=== PATIENT | female | born 1990 | race American Indian/Alaskan Native ===

== ENCOUNTER 2016-08-25 20:53 | Inpatient (IN) | payer MEDICAID ==
[2016-08-25 23:08] LABS: Urine Drugs of Abuse Note Disclamer
[2016-08-25 23:19] LABS: Bacteria,Urine 1+ /HPF (Negative); Bilirubin,Urine NEG (Negative); Blood,Urine NEG (Negative); Ketones,Urine 20 mg/dL (Negative); Leukocyte Esterase,Urine TR (Negative); Mucus,Urine 1+ /HPF; Nitrite,Urine NEG (Negative); Urobilinogen,Urine < 2.0 mg/dL (<2.0)
[2016-08-25 23:39] LABS: Basophils % (Auto) 0.3 % (0.0-1.8); Hematocrit 39.8 % (30.3-42.9); Hemoglobin 13.4 gm/dl (10.1-14.3); Mean Corpuscular HGB Conc 34 % (30-34); Mean Corpuscular Hemoglobin 27 pg (28-32); Mean Corpuscular Volume 81 fl (79-97); Red Blood Count 4.88 M/mm3 (3.65-5.03); Red Cell Distribution Width 14.4 % (13.2-15.2); White Blood Count 8.5 K/mm3 (4.5-11.0)
[2016-08-25 23:40] LABS: Platelet Count 221 K/mm3 (140-440)
[2016-08-25 23:41] LABS: Blood Urea Nitrogen 5 mg/dL (7-17); Calcium 9.6 mg/dL (8.4-10.2); Carbon Dioxide 18 mmol/L (22-30); Chloride 98.4 mmol/L (98-107); Glucose 108 mg/dL (65-100); Sodium 137 mmol/L (137-145)
[2016-08-25 23:43] LABS: Anion Gap 24 mmol/L
[2016-08-25] MEDS ORDERED: ATIVAN IV ONE (23:54)
--- NOTE | 2016-08-26 00:35 | Emergency Department Report ---
ED Seizure HPI - General Chief Complaint: Seizure Stated Complaint: MEDICAL CLEARANCE Time Seen by Provider: 08/25/16 22:09 Source: patient Mode of arrival: Ambulatory Limitations: No Limitations - History of Present Illness Initial Comments: This is a 26-year-old female who is a marginal historian due to being postictal. She indicates that she has long-standing seizure disorder and hasn' t been on different medications for a long time to control her seizures. Most recently she has been on Vimpat and Keppra. She reports she was compliant with these medications her doctor did take her off Vimpat approximately one month ago. She will apparently was on Dilantin as well and her doctor stopped the Dilantin. Patient had a seizure this morning and ultimately ended up at [facility] due to this sheet. She was given a loading dose of Keppra by IV. And was ultimately discharged to home with referral to neurology. Patient isn't able to inform me who her neurologist is. I have serious question and doubt whether she even has a neurologist currently as she seems to have a fibular confusion with what is going on with her medications. She indicates that her boyfriend brought her here today because she was having what sounds like dystonic reactions where she was having screwing up of her face and making funny gestures with her face to her family. On arrival to our ED. The patient had another seizure in our waiting room which last approximately 10 seconds to 15 seconds and was whole body. There was no loss of bowel or bladder continence with this. Patient was somewhat somnolent after for approximately 5-10 minutes and then seemed quite confused for approximately the next hour. MD Complaint: seizure -: Sudden Description of Episode: loss of consciousness, tonic-clonic movement -: second(s) (15) Witnessed:: Yes Trauma: No Seizure History: known seizure disorder Place: home Possible Precipitating Event: none Associated Symptoms: denies other symptoms - Related Data Home Medications Medication Instructions Recorded Confirmed Last Taken Lacosamide [Vimpat] 1 each PO DAILY 06/21/16 06/21/16 Unknown Previous Rx's Medication Instructions Recorded Last Taken Type Lacosamide [Vimpat] 100 mg PO Q12HR #60 tablet 06/21/16 Unknown Rx Nitrofurantoin Kershaw/M-Cryst 100 mg PO Q12HR #14 capsule 06/21/16 Unknown Rx [Macrobid CAP] levETIRAcetam [Keppra TAB] 500 mg PO BID #60 tablet 06/21/16 Unknown Rx Allergies Allergy/AdvReac Type Severity Reaction Status Date / Time Penicillins Allergy Unknown Verified 06/20/16 20:48 phenobarbital Allergy Unknown Verified 08/25/16 21:24 ED Review of Systems ROS: Stated complaint: MEDICAL CLEARANCE Other details as noted in HPI Constitutional: denies: chills, fever Eyes: denies: eye pain, eye discharge, vision change ENT: denies: ear pain, throat pain Respiratory: denies: cough, shortness of breath, wheezing Cardiovascular: denies: chest pain, palpitations Endocrine: no symptoms reported Gastrointestinal: denies: abdominal pain, nausea, diarrhea Genitourinary: denies: urgency, dysuria, discharge Musculoskeletal: denies: back pain, joint swelling, arthralgia Skin: denies: rash, lesions Neurological: denies: headache, weakness, paresthesias Psychiatric: denies: anxiety, depression Hematological/Lymphatic: denies: easy bleeding, easy bruising ED Past Medical Hx - Past Medical History Hx Seizures: Yes (pt takes Keppra) - Surgical History Additional Surgical History: .tubal ligation - Social History Smoking Status: Never Smoker Substance Use Type: None - Medications Home Medications: Home Medications Medication Instructions Recorded Confirmed Last Taken Type Lacosamide [Vimpat] 1 each PO DAILY 06/21/16 06/21/16 Unknown History Lacosamide [Vimpat] 100 mg PO Q12HR #60 tablet 06/21/16 Unknown Rx Nitrofurantoin Kershaw/M-Cryst 100 mg PO Q12HR #14 capsule 06/21/16 Unknown Rx [Macrobid CAP] levETIRAcetam [Keppra TAB] 500 mg PO BID #60 tablet 06/21/16 Unknown Rx ED Physical Exam - General Limitations: Other (some limitation due to mental status changes) General appearance: in no apparent distress, postictal - Head Head exam: Present: atraumatic, normocephalic - Eye Eye exam: Present: normal appearance, PERRL, EOMI - ENT ENT exam: Present: normal exam, mucous membranes moist, other (no oral lesions) - Neck Neck exam: Present: normal inspection. Absent: tenderness, meningismus, lymphadenopathy - Respiratory Respiratory exam: Present: normal lung sounds bilaterally. Absent: respiratory distress - Cardiovascular Cardiovascular Exam: Present: regular rate, normal rhythm. Absent: systolic murmur, diastolic murmur, rubs, gallop - GI/Abdominal GI/Abdominal exam: Present: soft, normal bowel sounds - Extremities Exam Extremities exam: Present: normal inspection. Absent: pedal edema, joint swelling - Back Exam Back exam: Present: normal inspection - Neurological Exam Neurological exam: Present: alert, oriented X3, other (moves all extremities spontaneously. No focal findings.) - Psychiatric Psychiatric exam: Present: normal affect, normal mood - Skin Skin exam: Present: warm, dry, intact, normal color. Absent: rash ED Course Vital Signs 08/25/16 08/26/16 21:09 00:21 Temperature 98.3 F 99.1 F Pulse Rate 120 H 98 H Respiratory 22 18 Rate Blood Pressure 126/84 Blood Pressure 110/63 [Left] O2 Sat by Pulse 100 100 Oximetry - Reevaluation(s) Reevaluation #1: 08/26/16 04:19 This is an interesting case. It is difficult to determine in conversation with the patient whether she has a neurologist or not. I would presume that she does that she is describing medication such as Vimpat and Dilantin as part of her medical regimen prior. She also had a doctor who DC'd these medications. That being said, the patient has no recollection of who her neurologist is specifically and appears to access emergency department quite regularly not only here but other facilities in town as well. She does endorse compliance on the Keppra. She did get loaded with IV Keppra at [facility] this morning. Despite this she is already had 2 seizures here in my emergency department. There were no concerning features associated with this patient's seizures. Baseline labs were obtained demonstrating mild hypokalemia otherwise unremarkable urine drug screen is negative as well as alcohol is negative. My suspicion is low for drugs of abuse. I'm inclined to believe the patient has been compliant with her Keppra. She was loaded this morning as well. Again it is odd to me that she is having these breakthrough seizures despite adequate medication. I do believe she needs more intensive evaluation in regards to how to help her have better seizure control. The second issue which are not really fully able to determine his whether she was having dystonic reactions earlier. I did not personally see any dystonic reactions. I just saw her in her postictal state. I'm not sure which medication she may have been on that would've caused that. Patient vitals have been stable here. She will be admitted to the hospitalist service for continued evaluation and care. ED Medical Decision Making - Lab Data Result diagrams: 08/25/16 23:23 08/25/16 23:23 Critical care attestation.: If time is entered above; I have spent that time in minutes in the direct care of this critically ill patient, excluding procedure time. ED Disposition Clinical Impression: Seizure Disposition: OP ADMITTED IP TO THIS HOSP Is pt being admited?: Yes Does the pt Need Aspirin: No Condition: Stable Time of Disposition: 00:35
--- NOTE | 2016-08-26 02:54 | Event Note ---
Date: 08/26/16 Seizure disorder See in reports
[2016-08-26] MEDS ORDERED: TYLENOL PO PRN (02:56)
[2016-08-26] MEDS ORDERED: PERCOCET 5/325 PO PRN (02:56)
[2016-08-26] MEDS ORDERED: AMBIEN PO PRN (02:56)
[2016-08-26] MEDS ORDERED: DILAUDID IV PRN (02:56)
[2016-08-26] MEDS ORDERED: ZOFRAN IV PRN (02:56)
[2016-08-26] MEDS ORDERED: MILK OF MAGNESIA PO PRN (02:56)
[2016-08-26] MEDS ORDERED: DULCOLAX PR PRN (02:56)
[2016-08-26] MEDS ORDERED: K-DUR PO ONE (03:06)
[2016-08-26] MEDS: PEPCID IV SCH ×3 (03:30→22:23)
[2016-08-26] MEDS: VIMPAT PO SCH ×3 (03:30→22:23)
[2016-08-26] MEDS: KEPPRA PO SCH ×3 (03:30→22:23)
--- NOTE | 2016-08-26 06:51 | History and Physical Report ---
CHIEF COMPLAINT: Seizures and postictal state. HISTORY OF PRESENT ILLNESS: A 26-year-old -[place] female, poor historian, who presents with seizures and postictal state, which has now resolved in the ER. The patient has a longstanding seizure disorder. The patient is on Vimpat and Keppra. The patient reports that she is compliant with medications. The patient had a seizure this morning and presented to the [facility] and was given a loading dose of Keppra and was discharged home with referral to Neurology. The patient does not follow up with Neurology. The patient has been having facial movement disorder and making funny gestures with the face family. The patient also had a seizure in the waiting room, lasting approximately 10-15 seconds. It was tonic clonic seizures and weakness. No loss of bowel or bladder continence. The patient was somnolent after the seizures and also confused. PAST MEDICAL HISTORY: As mentioned seizure disorder. CURRENT MEDICATIONS: Keppra 500 b.i.d., Vimpat 100 mg q.12h., Macrobid 100 q.12h. for urinary tract infection. PAST SURGICAL HISTORY: and tubal ligation. SOCIAL HISTORY: Does not smoke. No alcohol, no recreational drugs. FAMILY HISTORY: No hypertension, no diabetes. REVIEW OF SYSTEMS: Significant for active seizures and postictal state. Otherwise, review of systems is essentially negative. A 14-point review of systems was done. PHYSICAL EXAMINATION: GENERAL: Young female, lethargic and answers appropriately to some extent. VITAL SIGNS: Blood pressure is 126/84, pulse is 120, temperature is 98.3, respiratory rate is 22, sats are 100%. HEENT: Unremarkable. Pupils equal and reactive. NECK: Supple, no lymphadenopathy, no thyromegaly. LUNGS: Clear to auscultation and percussion. Good air entry. CARDIOVASCULAR: S1, S2 heard. No gallop, no murmur, no rub. Apical impulse in left fifth intercostal space in midclavicular line. ABDOMEN: Soft and benign. No hepatosplenomegaly. No guarding, no rigidity. Hernial orifices are normal. EXTREMITIES: Good pedal pulses. No pedal edema. CENTRAL NERVOUS SYSTEM: Alert, slightly lethargic, but able to move all four extremities. NEUROLOGIC: No focal deficits. LABORATORY DATA: Significant for potassium of 3.0 and bicarbonate of 18; otherwise, labs are normal. Head CT was not done. ASSESSMENT AND PLAN: 1. Status epilepticus, two uncontrolled seizures. The patient's Keppra increased to 750 q.12h. Continue on Vimpat 100 mg q.12h., also IV fluids for the time being. Observation for 24-48 hours. 2. Urinary tract infection. The patient was started on Rocephin. The patient may be discharged on Keflex 24 to 48 hours, also on DVT prophylaxis, Lovenox 40 mg subcutaneous daily. In summary, the patient to be discharged on a higher dose of Keppra 750 mg q.12h. instead for Keppra 500 q.12h. and also Vimpat 100 mg q.12h. Question of noncompliance present. To follow with Neurology as outpatient. JOB# [id number] LAYLA/SHEILA
--- NOTE | 2016-08-26 07:21 | Admit Criteria Form ---
Admission Criteria Documentation: SEIZURE Clinical Indications for Admission to Inpatient Care (Place 'X' for any and all applicable criteria): Admission is indicated for seizure and ANY ONE of the following(1)(2)(3)(4)(5): [ X]I. Inpatient admission required rather than observation care (Also use Seizure: Observation Care Criteria as appropriate) because of ANY ONE of the following: [ ]a) Altered mental status that is severe or persistent [ ]b) New focal neurologic deficit that is severe or persistent [ ]c) Metabolic disorder (eg, hypoglycemia, hyponatremia) that is severe or persistent [X ]d) Recurrent seizure [ ]e) Outpatient antiseizure regimen cannot be established (eg , patient cannot tolerate medication, initiation requires inpatient care) [ ]f) Need for ongoing intravenous infusion of antiseizure medication [ ]g) Cardiac arrhythmias of immediate concern [ ]h) Cerebral bleeding, hydrocephalus, or vasospasm monitoring (14) [ ]i) Increased intracranial pressure or cerebral edema monitoring (15) [ ]j) Other treatment or monitoring requiring inpatient admission [ ]II. Status epilepticus [A] or repetitive seizures not controlled with emergent treatment (6)(8) [ ]III. Brain disorder (eg, tumor, edema, and hydrocephalus) that requiring monitoring or intervention available only at inpatient level of care. [ ]IV. Brain insult (eg, severe trauma, stroke, drug toxicity, or withdrawal) that requires monitoring or intervention available only at inpatient level of care (10)(11) Extended stay beyond goal length of stay may be needed for (22) [ ]a) Complications of status epilepticus [ ]b) Refractory status epilepticus [ ]c) Etiology-specific therapy for conditions such as SURGERY SPECIALIST infection, head injury,eclampsia, severe metabolic abnormalities, and brain tumor [ ]d) Residual neurologic damage, [ ]e) Initiation of significant change to anticonvulsant treatment [ ]f) Older patients (65 years or older) [ ]g) Patient requiring intubation (eg, to protect airway) The original [facility] content created by [employer] has been revised. The portions of the content which have been revised are identified through the use of italic text or in bold, and [facility] [employer] has neither reviewed nor approved the modified material. All other unmodified content is copyright [facility] [employer]. Please see references footnoted in the original [facility] edition 2016 Admission Criteria Met: Yes
[2016-08-26] MEDS: LOVENOX SUB-Q SCH (12:09)
[2016-08-26] MEDS: MACROBID PO SCH ×2 (12:10→22:23)
[2016-08-26] MEDS: D5NS 1,000 ML IV SCH (15:28)
[2016-08-26] MEDS: ROCEPHIN/NS 2 GM/100 ML 2 GM/100 ML BAG IV SCH (16:04)
[2016-08-27] MEDS: D5NS 1,000 ML IV SCH (06:49)
[2016-08-27 07:07] LABS: Basophils % (Auto) 1.1 % (0.0-1.8); Eosinophils % (Auto) 3.6 % (0.0-4.3); Hematocrit 32.6 % (30.3-42.9); Hemoglobin 10.8 gm/dl (10.1-14.3); Mean Corpuscular HGB Conc 33 % (30-34); Mean Corpuscular Hemoglobin 27 pg (28-32); Mean Corpuscular Volume 83 fl (79-97); Platelet Count 259 K/mm3 (140-440); Red Blood Count 3.93 M/mm3 (3.65-5.03); Red Cell Distribution Width 14.5 % (13.2-15.2); White Blood Count 5.9 K/mm3 (4.5-11.0)
[2016-08-27 08:45] LABS: Alanine Aminotransferase 16 units/L (7-56); Albumin 3.7 g/dL (3.9-5); Albumin/Globulin Ratio 1.3 %; Alkaline Phosphatase 49 units/L (35-129); Bilirubin,Total 0.3 mg/dL (0.1-1.2); Blood Urea Nitrogen 4 mg/dL (7-17); Calcium 8.6 mg/dL (8.4-10.2); Carbon Dioxide 23 mmol/L (22-30); Chloride 106.6 mmol/L (98-107); Glucose 96 mg/dL (65-100); Potassium 3.5 mmol/L (3.6-5.0); Sodium 144 mmol/L (137-145); Total Protein 6.6 g/dL (6.3-8.2)
[2016-08-27 08:46] LABS: Anion Gap 18 mmol/L
--- NOTE | 2016-08-27 08:57 | Discharge Summary ---
Providers - Providers Date of Admission: 08/26/16 00:35 Attending physician: HEBER LOCO Primary care physician: IMAN CRAIG MD Hospitalization Condition: Stable Disposition: STILL A PATIENT Exam - Constitutional Vitals: Temp Pulse Resp BP Pulse Ox 98.1 F 70 18 93/59 99 08/27/16 08:05 08/27/16 08:05 08/27/16 08:05 08/27/16 08:05 08/27/16 08:05 Plan Follow up with: IMAN CRAIG MD [Primary Care Provider] - 3-5 Days
[2016-08-27] MEDS: KEPPRA PO SCH (09:31)
[2016-08-27] MEDS: MACROBID PO SCH (09:31)
[2016-08-27] MEDS: VIMPAT PO SCH (09:32)
[2016-08-27] MEDS: LOVENOX SUB-Q SCH (09:33)
[2016-08-27] MEDS ORDERED: PEPCID PO SCH (10:00)
[2016-08-27] MEDS: ROCEPHIN/NS 2 GM/100 ML 2 GM/100 ML BAG IV SCH (11:07)
[2016-08-27] MEDS ORDERED: FLUARIX QUAD 2016-2017(36 MOS+) IM ONE (12:00)
[2016-08-27 12:45] VITALS: BP 93/55
== END 2016-08-27 16:00 | disposition home or self-care (01) | DRG 101 ==
LOC: ED 20:53 → 3A 08-26 00:35
PROVIDERS: ADMIT Internal Medicine; ATTEND Internal Medicine
DX: G40.901 Epilepsy, unspecified, not intractable, with status epilepticus (principal); Z88.0 Allergy status to penicillin; Z88.8 Allergy status to other drugs, medicaments and biological substances; Z23 Encounter for immunization; Z98.51 Tubal ligation status; Z68.20 Body mass index [BMI] 20.0-20.9, adult; N39.0 Urinary tract infection, site not specified
CPT/HCPCS: 36415; 80048; 80053; 80307; 80320; 81001; 85025; 90686; 96374; G0480; J0696; J1650; J2060; J7042

== ENCOUNTER 2016-11-21 18:19 | Emergency (ER) | payer MEDICAID ==
[2016-11-21 21:50] LABS: Basophils % (Auto) 0.9 % (0.0-1.8); Eosinophils % (Auto) 1.3 % (0.0-4.3); Hematocrit 34.7 % (30.3-42.9); Hemoglobin 11.2 gm/dl (10.1-14.3); Mean Corpuscular HGB Conc 32 % (30-34); Mean Corpuscular Hemoglobin 27 pg (28-32); Mean Corpuscular Volume 83 fl (79-97); Platelet Count 270 K/mm3 (140-440); Red Blood Count 4.16 M/mm3 (3.65-5.03); White Blood Count 8.5 K/mm3 (4.5-11.0)
[2016-11-21] MEDS: KEPPRA 1,000 MG/NS 0.75% 100ML 1,000 MG/100 ML BAG IV ONE (21:50)
[2016-11-21 22:06] LABS: Anion Gap 17 mmol/L; Blood Urea Nitrogen 4 mg/dL (7-17); Carbon Dioxide 26 mmol/L (22-30); Chloride 101.4 mmol/L (98-107); Glucose 97 mg/dL (65-100); Potassium 3.4 mmol/L (3.6-5.0); Sodium 141 mmol/L (137-145)
[2016-11-21 22:37] VITALS: BP 96/62
[2016-11-21] MEDS: K-DUR PO ONE (22:39)
[2016-11-21] MEDS: KEPPRA PO ONE (22:39)
--- NOTE | 2016-11-21 22:54 | Emergency Department Report ---
ED Seizure HPI - General Chief Complaint: Seizure Stated Complaint: SEVERAL SEIZURES X 3-4 DAYS Time Seen by Provider: 11/21/16 20:58 Source: patient, old records reviewed (patient admitted here August for seizures) Mode of arrival: Wheelchair Limitations: No Limitations - History of Present Illness Initial Comments: 26-year-old female with past medical history seizures presents to the hospital after having 2 seizures today. Patient had a 15 minute seizure then shortly thereafter without full mental recovery she had another 15 minute seizure witnessed by her mother. Patient is currently alert and oriented 3 and I baseline. Mild tongue laceration abrasion. No urinary incontinence. Patient denies any pain. Patient's been compliant with her Keppra. She is no longer on Vimpat. She has had multiple frequent seizures over the past [address] Jordy Fuentes [facility] affiliated. - Related Data Home Medications Medication Instructions Recorded Confirmed Last Taken Lacosamide [Vimpat] 1 each PO DAILY 06/21/16 11/21/16 Unknown levETIRAcetam [Keppra TAB] 750 mg PO BID 11/21/16 11/21/16 11/21/16 Previous Rx's Medication Instructions Recorded Last Taken Type Nitrofurantoin Dickens/M-Cryst 100 mg PO Q12HR #14 capsule 06/21/16 Unknown Rx [Macrobid CAP] Lacosamide [Vimpat] 100 mg PO Q12HR #60 tablet 08/27/16 Unknown Rx Allergies Allergy/AdvReac Type Severity Reaction Status Date / Time Penicillins Allergy Unknown Verified 06/20/16 20:48 phenobarbital Allergy Unknown Verified 08/25/16 21:24 ED Review of Systems ROS: Stated complaint: SEVERAL SEIZURES X 3-4 DAYS Other details as noted in HPI Comment: All other systems reviewed and negative Other: Constitutional: No fevers chills Eyes: No eye pain visual changes ENT: No ear pain or throat pain Neck: Denies pain Respiratory: Denies cough wheezing shortness of breath Cardiovascular: Denies chest pain, palpitations, syncope GI: Denies abdominal pain, nausea, vomiting, diarrhea : Denies dysuria Musculoskeletal: Denies back pain Skin: Denies rash, lesions, erythema Neurologic: Denies headache, numbness, weakness Psychiatric: Denies suicidal ideation, hallucinations ED Past Medical Hx - Past Medical History Hx Seizures: Yes (pt takes Keppra) - Surgical History Additional Surgical History: .tubal ligation - Social History Smoking Status: Never Smoker Substance Use Type: None - Medications Home Medications: Home Medications Medication Instructions Recorded Confirmed Last Taken Type Lacosamide [Vimpat] 1 each PO DAILY 06/21/16 11/21/16 Unknown History Nitrofurantoin Dickens/M-Cryst 100 mg PO Q12HR #14 capsule 06/21/16 11/21/16 Unknown Rx [Macrobid CAP] Lacosamide [Vimpat] 100 mg PO Q12HR #60 tablet 08/27/16 11/21/16 Unknown Rx levETIRAcetam [Keppra TAB] 750 mg PO BID 11/21/16 11/21/16 11/21/16 History ED Physical Exam - General Limitations: No Limitations - Other Other exam information: General: No limitations, patient is alert in no acute distress Head exam: Atraumatic, normocephalic Eyes exam: Normal appearance, pupils equal reactive to light, extraocular movements intact ENT: Moist mucous membrane, normal oropharynx. Minimal left-sided tongue abrasion no active bleeding or repairable laceration Neck exam: Normal inspection, full range of motion, no meningismus nontender Respiratory exam: Clear to auscultation bilateral, no wheezes, rales, crackles Cardiovascular: Normal rate and rhythm, normal heart sounds Abdomen: Soft, nondistended, and nontender, with normal bowel sounds, no rebound, or guarding Extremity: Full range of motion normal inspection no deformity Back: Normal Inspection, full range of motion, no tenderness Neurologic: Alert, oriented x3, cranial nerves intact, no motor or sensory deficit Psychiatric: normal affect, normal mood Skin: Warm, dry, intact ED Course Vital Signs 11/21/16 11/21/16 11/21/16 19:29 20:08 20:10 Temperature 98.2 F 97.7 F Pulse Rate 80 86 77 Respiratory 16 18 Rate Blood Pressure 104/63 105/61 Blood Pressure 105/61 [Right] O2 Sat by Pulse 100 100 Oximetry 11/21/16 11/21/16 11/21/16 20:21 20:31 20:41 Temperature Pulse Rate 83 92 H 99 H Respiratory 13 22 19 Rate Blood Pressure 106/66 106/66 106/66 Blood Pressure [Right] O2 Sat by Pulse 97 100 82 L Oximetry 11/21/16 11/21/16 11/21/16 20:51 21:01 21:11 Temperature Pulse Rate 90 97 H 93 H Respiratory 14 15 14 Rate Blood Pressure 111/73 103/57 103/57 Blood Pressure [Right] O2 Sat by Pulse 100 96 100 Oximetry 11/21/16 11/21/16 11/21/16 21:21 21:31 21:41 Temperature Pulse Rate 103 H 91 H 96 H Respiratory 12 14 21 Rate Blood Pressure 105/54 105/54 105/54 Blood Pressure [Right] O2 Sat by Pulse 99 100 91 Oximetry 11/21/16 11/21/16 11/21/16 21:51 21:53 22:00 Temperature Pulse Rate 92 H 95 H Respiratory 13 18 15 Rate Blood Pressure 105/54 105/54 Blood Pressure [Right] O2 Sat by Pulse 100 100 95 Oximetry 11/21/16 11/21/16 22:11 22:20 Temperature Pulse Rate 88 100 H Respiratory 17 23 Rate Blood Pressure 96/62 96/62 Blood Pressure [Right] O2 Sat by Pulse 97 98 Oximetry - Consultations Consultation #1: 11/21/16 22:00 Case was discussed with operations intelligence neurologist with Dr. Fuentes. Initially patient reported that she took 750 twice a day and recommendation was to increase to 1500 mg twice a day like she supposed to take. Patient then confirmed she does take 1500mg of Keppra twice a day. This was rediscussed with the neurologist and he recommends to maintain the current regimen and follow up as outpatient with her primary neurologist and he will write a note for follow-up in their system. ED Medical Decision Making - Lab Data Result diagrams: 11/21/16 21:35 11/21/16 21:35 Lab Results 11/21/16 11/21/16 11/21/16 Range/Units 21:35 21:35 21:35 WBC 8.5 (4.5-11.0) K/mm3 RBC 4.16 (3.65-5.03) M/mm3 Hgb 11.2 (10.1-14.3) gm/dl Hct 34.7 (30.3-42.9) % MCV 83 (79-97) fl MCH 27 L (28-32) pg MCHC 32 (30-34) % RDW 14.0 (13.2-15.2) % Plt Count 270 (140-440) K/mm3 Lymph % (Auto) 37.0 H (13.4-35.0) % Dickens % (Auto) 6.2 (0.0-7.3) % Eos % (Auto) 1.3 (0.0-4.3) % Baso % (Auto) 0.9 (0.0-1.8) % Lymph # 3.1 (1.2-5.4) K/mm3 Dickens # 0.5 (0.0-0.8) K/mm3 Eos # 0.1 (0.0-0.4) K/mm3 Baso # 0.1 (0.0-0.1) K/mm3 Seg Neutrophils % 54.6 (40.0-70.0) % Seg Neutrophils # 4.6 (1.8-7.7) K/mm3 Sodium 141 (137-145) mmol/L Potassium 3.4 L (3.6-5.0) mmol/L Chloride 101.4 (98-107) mmol/L Carbon Dioxide 26 (22-30) mmol/L Anion Gap 17 mmol/L BUN 4 L (7-17) mg/dL Creatinine 0.5 L (0.7-1.2) mg/dL Estimated GFR > 60 ml/min BUN/Creatinine Ratio 8.00 % Glucose 97 (65-100) mg/dL Calcium 9.0 (8.4-10.2) mg/dL Magnesium 1.90 (1.7-2.3) mg/dL HCG, Qual Negative (Negative) - Medical Decision Making Patient received 1000 mg IV Keppra followed by 500 mg by mouth. By mouth potassium also provided for mild hypokalemia. Magnesium normal. Outpatient follow-up with neurology will be recommended. - Differential Diagnosis breakthrough seizure, medication noncompliance, electrolyte abnormality Critical Care Time: No Critical care attestation.: If time is entered above; I have spent that time in minutes in the direct care of this critically ill patient, excluding procedure time. ED Disposition Clinical Impression: Breakthrough seizure, Hypokalemia Disposition: DISCHARGED TO HOME OR SELFCARE Is pt being admited?: No Does the pt Need Aspirin: No Condition: Stable Instructions: Recurrent Seizures Adult (ED), Hypokalemia (ED) Additional Instructions: Continue seizure medications as prescribed. Return if symptoms worsen. Call your doctor's office tomorrow to discuss possible medication adjustment and close follow-up Referrals: Gina HOOVER [Other] - 2-3 Days Time of Disposition: 23:33
== END 2016-11-22 00:05 | disposition home or self-care (01) ==
LOC: ED 18:19
DX: R56.9 Unspecified convulsions (principal); E87.6 Hypokalemia; Z88.8 Allergy status to other drugs, medicaments and biological substances; Z88.0 Allergy status to penicillin
CPT/HCPCS: 36415; 80048; 83735; 84703; 85025; 96365; 99284; J1953

== ENCOUNTER 2017-01-17 19:00 | Emergency (ER) | payer MEDICAID ==
[2017-01-17] MEDS ORDERED: KEPPRA 1,000 MG/NS 0.75% 100ML 1,000 MG/100 ML BAG IV ONE (19:41)
[2017-01-17 20:16] LABS: Basophils % (Auto) 0.5 % (0.0-1.8); Hematocrit 36.8 % (30.3-42.9); Hemoglobin 11.9 gm/dl (10.1-14.3); Mean Corpuscular HGB Conc 32 % (30-34); Mean Corpuscular Hemoglobin 27 pg (28-32); Mean Corpuscular Volume 83 fl (79-97); Platelet Count 301 K/mm3 (140-440); Red Blood Count 4.42 M/mm3 (3.65-5.03); Red Cell Distribution Width 15.5 % (13.2-15.2); White Blood Count 16.5 K/mm3 (4.5-11.0)
[2017-01-17 20:51] LABS: Anion Gap 17 mmol/L; BUN/Creatinine Ratio 13.33; Blood Urea Nitrogen 8 mg/dL (7-17); Calcium 9.2 mg/dL (8.4-10.2); Carbon Dioxide 24 mmol/L (22-30); Chloride 100.2 mmol/L (98-107); Glucose 95 mg/dL (65-100); Potassium 4.2 mmol/L (3.6-5.0); Sodium 137 mmol/L (137-145)
[2017-01-17] MEDS ORDERED: NORCO 5/325 PO ONE (22:00)
[2017-01-17 23:53] LABS: Bilirubin,Urine NEG (Negative); Blood,Urine NEG (Negative); Ketones,Urine TR mg/dL (Negative); Leukocyte Esterase,Urine NEG (Negative); Mucus,Urine FEW /HPF; Nitrite,Urine NEG (Negative); Protein,Urine <15 mg/dL mg/dL (Negative); Urobilinogen,Urine < 2.0 mg/dL (<2.0)
--- NOTE | 2017-01-18 00:32 | Emergency Department Report ---
ED Seizure HPI - General Chief Complaint: Seizure Stated Complaint: SEIZURE OUT OF MEDS Time Seen by Provider: 01/17/17 21:59 Source: patient, EMS Mode of arrival: Stretcher Limitations: No Limitations - History of Present Illness Initial Comments: 26-year-old female with past medical history of seizure history brought to the emergency department by her for seizure. Per and patient she was resting when she had generalized tonic-clonic jerking that lasted less than 1 minute. Currently patient has no complaints. Patient states she has been noncompliant with Keppra secondary to running out of her prescription. MD Complaint: seizure -: Gradual Description of Episode: loss of consciousness, tonic-clonic movement Witnessed:: Yes Trauma: No Seizure History: known seizure disorder Place: home Possible Precipitating Event: none Associated Symptoms: denies other symptoms. denies: chest pain, confusion, cough, loss of appetite, malaise, weakness, tongue injury, shoulder dislocation Treatments Prior to Arrival: none - Related Data Home Medications Medication Instructions Recorded Confirmed Last Taken RX: Lacosamide [Vimpat] 1 each PO DAILY 06/21/16 11/21/16 Unknown RX: levETIRAcetam [Keppra TAB] 750 mg PO BID 11/21/16 11/21/16 11/21/16 Previous Rx's Medication Instructions Recorded Last Taken Type RX: Nitrofurantoin [place]/M-Cryst 100 mg PO Q12HR #14 capsule 06/21/16 Unknown Rx [Macrobid CAP] RX: Lacosamide [Vimpat] 100 mg PO Q12HR #60 tablet 08/27/16 Unknown Rx levETIRAcetam [Keppra TAB] 500 mg PO BID #40 tablet 01/18/17 Unknown Rx Allergies Allergy/AdvReac Type Severity Reaction Status Date / Time Penicillins Allergy Unknown Verified 06/20/16 20:48 phenobarbital Allergy Unknown Verified 08/25/16 21:24 ED Review of Systems ROS: Stated complaint: SEIZURE OUT OF MEDS Other details as noted in HPI Constitutional: denies: chills, fever Eyes: denies: eye pain, eye discharge, vision change ENT: denies: ear pain, throat pain Respiratory: denies: cough, shortness of breath, wheezing Cardiovascular: denies: chest pain, palpitations Endocrine: no symptoms reported Gastrointestinal: denies: abdominal pain, nausea, diarrhea Genitourinary: denies: urgency, dysuria, discharge Musculoskeletal: denies: back pain, joint swelling, arthralgia Skin: denies: rash, lesions Neurological: other (seizure). denies: headache, weakness, paresthesias Psychiatric: denies: anxiety, depression Hematological/Lymphatic: denies: easy bleeding, easy bruising ED Past Medical Hx - Past Medical History Previous Medical History?: Yes Hx Hypertension: No Hx CVA: No Hx Heart Attack/AMI: No Hx Congestive Heart Failure: No Hx Diabetes: No Hx Deep Vein Thrombosis: No Hx Pulmonary Embolism: No Hx GERD: No Hx Liver Disease: No Hx Renal Disease: No Hx of Cancer: No Hx Sickle Cell Disease: No Hx Arthritis: No Hx Headaches / Migraines: No Hx Seizures: Yes (pt takes Keppra) Hx Kidney Stones: No Hx Psychiatric Treatment: No Hx Asthma: No Hx COPD: No Hx Tuberculosis: No Hx Dementia: No Hx HIV: No - Surgical History Additional Surgical History: .tubal ligation - Social History Smoking Status: Never Smoker Substance Use Type: None - Medications Home Medications: Home Medications Medication Instructions Recorded Confirmed Last Taken Type RX: Lacosamide [Vimpat] 1 each PO DAILY 06/21/16 11/21/16 Unknown History RX: Nitrofurantoin [place]/M-Cryst 100 mg PO Q12HR #14 capsule 06/21/16 11/21/16 Unknown Rx [Macrobid CAP] RX: Lacosamide [Vimpat] 100 mg PO Q12HR #60 tablet 08/27/16 11/21/16 Unknown Rx RX: levETIRAcetam [Keppra TAB] 750 mg PO BID 11/21/16 11/21/16 11/21/16 History levETIRAcetam [Keppra TAB] 500 mg PO BID #40 tablet 01/18/17 Unknown Rx ED Physical Exam - General Limitations: No Limitations, Other (pt has chronic stuttering) General appearance: alert, in no apparent distress - Head Head exam: Present: atraumatic, normocephalic - Eye Eye exam: Present: normal appearance - ENT ENT exam: Present: mucous membranes moist - Neck Neck exam: Present: normal inspection - Respiratory Respiratory exam: Present: normal lung sounds bilaterally. Absent: respiratory distress - Cardiovascular Cardiovascular Exam: Present: regular rate, normal rhythm. Absent: systolic murmur, diastolic murmur, rubs, gallop - GI/Abdominal GI/Abdominal exam: Present: soft, normal bowel sounds - Extremities Exam Extremities exam: Present: normal inspection - Back Exam Back exam: Present: normal inspection - Neurological Exam Neurological exam: Present: alert, oriented X3, CN II-XII intact, other (5/5 extremity strength, intact sensation ) - Psychiatric Psychiatric exam: Present: normal affect, normal mood - Skin Skin exam: Present: warm, dry, intact, normal color. Absent: rash ED Course Vital Signs 01/17/17 01/17/17 01/17/17 19:25 20:11 22:04 Temperature 99.5 F 99.5 F Pulse Rate 96 H 80 Respiratory 18 18 18 Rate Blood Pressure 100/65 Blood Pressure 100/65 [Right] O2 Sat by Pulse 98 99 Oximetry 01/17/17 01/18/17 22:11 00:59 Temperature Pulse Rate 76 Respiratory 18 16 Rate Blood Pressure Blood Pressure 104/66 [Right] O2 Sat by Pulse 98 98 Oximetry - Reevaluation(s) Reevaluation #1: 01/18/17 00:25 Patient has been asymptomatic in the ED and agree she is stable discharge home. ED Medical Decision Making - Lab Data Result diagrams: 01/17/17 20:10 01/17/17 20:10 - Medical Decision Making 26-year-old female with past medical history of seizure history presenting to the emergency department sp seizure. Likely seizure occurred secondary to patient noncompliance with meds after running out of Keppra her prescription recently.. I have refilled her Keppra and she states she is able to his fill her prescription. Patient admits she is stable to discharge home and follow-up with neurology. Patient understands return precautions Critical Care Time: No Critical care attestation.: If time is entered above; I have spent that time in minutes in the direct care of this critically ill patient, excluding procedure time. ED Disposition Clinical Impression: Seizure, Seizure Disposition: DC-01 TO HOME OR SELFCARE Is pt being admited?: No Does the pt Need Aspirin: No Condition: Stable Instructions: Epilepsy (ED), Recurrent Seizures Adult (ED) Prescriptions: levETIRAcetam [Keppra TAB] 500 mg PO BID #40 tablet Referrals: PRIMARY CARE, [Primary Care Provider] - 3-5 Days GRETEL BOLANOS MD [Staff Physician] - NADIA MCCURDY MD [Referring] - 3-5 Days Forms: Work/School Release Form(ED)
[2017-01-18 01:00] VITALS: BP 104/66
== END 2017-01-18 01:00 | disposition home or self-care (01) ==
LOC: ED 19:00
DX: G40.909 Epilepsy, unspecified, not intractable, without status epilepticus (principal); Z88.0 Allergy status to penicillin; Z88.8 Allergy status to other drugs, medicaments and biological substances
CPT/HCPCS: 36415; 80048; 81001; 81025; 82962; 85025; 96374; 99284; J1953

== ENCOUNTER 2017-01-26 17:07 | Inpatient (IN) | payer MEDICAID ==
[2017-01-26] MEDS ORDERED: KEPPRA 1,000 MG in D5W 100 ML IV ONE (18:54)
[2017-01-26] MEDS ORDERED: VIMPAT 100 MG in NACL 0.9% 100 ML IV ONE (18:57)
[2017-01-26] MEDS ORDERED: KEPPRA 1,000 MG/NS 0.75% 100ML 1,000 MG/100 ML BAG IV ONE (19:44)
[2017-01-26 21:20] LABS: Alanine Aminotransferase 7 units/L (7-56); Albumin 3.2 g/dL (3.9-5); Albumin/Globulin Ratio 0.9 %; Alkaline Phosphatase 51 units/L (35-129); Anion Gap 18 mmol/L; BUN/Creatinine Ratio 11.66; Blood Urea Nitrogen 7 mg/dL (7-17); Carbon Dioxide 19 mmol/L (22-30); Chloride 102.5 mmol/L (98-107); Glucose 98 mg/dL (65-100); Potassium 4.5 mmol/L (3.6-5.0); Sodium 135 mmol/L (137-145); Total Protein 6.9 g/dL (6.3-8.2)
[2017-01-26 21:29] LABS: Calcium 8.6 mg/dL (8.4-10.2)
[2017-01-26 21:58] LABS: Eosinophils % (Auto) 0.6 % (0.0-4.3); Hematocrit 34.9 % (30.3-42.9); Mean Corpuscular HGB Conc 31 % (30-34); Mean Corpuscular Volume 83 fl (79-97); Platelet Count 273 K/mm3 (140-440); Red Blood Count 4.23 M/mm3 (3.65-5.03); White Blood Count 12.5 K/mm3 (4.5-11.0)
[2017-01-26 22:04] LABS: Mean Corpuscular Hemoglobin 26 pg (28-32)
--- NOTE | 2017-01-26 22:58 | Cat Scan Report ---
FINAL REPORT PROCEDURE: CT HEAD/BRAIN WO CON TECHNIQUE: Computerized tomography of the head was performed without contrast material. HISTORY: Altered mental status status post seizure COMPARISON: No prior studies are available for comparison. FINDINGS: No CT evidence of intracranial mass, hemorrhage, acute territorial infarction, or hydrocephalus. The intracranial arteries are symmetric in density. Calvarium is intact. The visualized paranasal sinuses and mastoids are aerated. IMPRESSION: No CT evidence of acute abnormality
--- NOTE | 2017-01-26 22:58 | Emergency Department Report ---
ED Seizure HPI - General Chief Complaint: Altered Mental Status Stated Complaint: POSS SEIZURES Time Seen by Provider: 01/26/17 20:14 Source: family Mode of arrival: Wheelchair Limitations: Altered Mental Status - History of Present Illness Initial Comments: 26-year-old female with a past medical history of seizures presents to the hospital with multiple seizures last night and this morning. Patient's fiance providing history of present illness this patient is not speaking right now. He believes that she took the "wrong medication". And she apparently has been acting strange since last night. Currently patient stares and opens eyes but would not speak or follow commands. Nurse reports no response with straight cath for urine. Unable to obtain any other hx of present illness from pt at this time. Apparently patient had a headache prior to arrival. Per medical record review patient is on Keppra and possibly also Vimpat. - Related Data Home Medications Medication Instructions Recorded Confirmed Last Taken Lacosamide [Vimpat] 1 each PO DAILY 06/21/16 11/21/16 Unknown levETIRAcetam [Keppra TAB] 750 mg PO BID 11/21/16 11/21/16 11/21/16 Previous Rx's Medication Instructions Recorded Last Taken Type Nitrofurantoin [place]/M-Cryst 100 mg PO Q12HR #14 capsule 06/21/16 Unknown Rx [Macrobid CAP] Lacosamide [Vimpat] 100 mg PO Q12HR #60 tablet 08/27/16 Unknown Rx levETIRAcetam [Keppra TAB] 500 mg PO BID #40 tablet 01/18/17 Unknown Rx Allergies Allergy/AdvReac Type Severity Reaction Status Date / Time Penicillins Allergy Unknown Verified 01/26/17 18:10 phenobarbital Allergy Unknown Verified 01/26/17 18:10 ED Review of Systems ROS: Stated complaint: POSS SEIZURES Other details as noted in HPI Comment: Unobtainable due to pts medical conditions ED Past Medical Hx - Past Medical History Previous Medical History?: Yes Hx Hypertension: No Hx CVA: No Hx Heart Attack/AMI: No Hx Congestive Heart Failure: No Hx Diabetes: No Hx Deep Vein Thrombosis: No Hx Pulmonary Embolism: No Hx GERD: No Hx Liver Disease: No Hx Renal Disease: No Hx Sickle Cell Disease: No Hx Arthritis: No Hx Headaches / Migraines: No Hx Seizures: Yes (pt takes Keppra) Hx Kidney Stones: No Hx Psychiatric Treatment: No Hx Asthma: No Hx COPD: No Hx Tuberculosis: No Hx Dementia: No Hx HIV: No - Surgical History Past Surgical History?: Yes Additional Surgical History: .tubal ligation - Social History Smoking Status: Never Smoker Substance Use Type: None - Medications Home Medications: Home Medications Medication Instructions Recorded Confirmed Last Taken Type Lacosamide [Vimpat] 1 each PO DAILY 06/21/16 11/21/16 Unknown History Nitrofurantoin [place]/M-Cryst 100 mg PO Q12HR #14 capsule 06/21/16 11/21/16 Unknown Rx [Macrobid CAP] Lacosamide [Vimpat] 100 mg PO Q12HR #60 tablet 08/27/16 11/21/16 Unknown Rx levETIRAcetam [Keppra TAB] 750 mg PO BID 11/21/16 11/21/16 11/21/16 History levETIRAcetam [Keppra TAB] 500 mg PO BID #40 tablet 01/18/17 Unknown Rx ED Physical Exam - General Limitations: Altered Mental Status - Other Other exam information: General: limited by pt mental status Head exam: Atraumatic, normocephalic Eyes exam: Normal appearance ENT: Moist mucous membrane Neck exam: Normal inspection, full range of motion Respiratory exam: Clear to auscultation bilateral, no wheezes, rales, crackles Cardiovascular: Normal rate and rhythm, normal heart sounds Abdomen: Soft, nondistended, and nontender, with normal bowel sounds, no rebound, or guarding Extremity: normal inspection Back: Normal Inspection Neurologic: opens eyes spontaneously, will not speak or follow commands. no facial droop. Psychiatric: normal affect, normal mood Skin: Warm, dry, intact ED Course Vital Signs 01/26/17 01/26/17 18:05 22:57 Temperature 98.6 F 99.2 F Pulse Rate 114 H 89 Respiratory 16 12 Rate Blood Pressure 98/69 Blood Pressure 101/24 [Left] O2 Sat by Pulse 100 99 Oximetry ED Medical Decision Making - Lab Data Result diagrams: 01/26/17 20:49 01/26/17 20:49 Lab Results 01/26/17 01/26/17 01/26/17 Range/Units 20:49 20:49 20:49 WBC 12.5 H (4.5-11.0) K/mm3 RBC 4.23 (3.65-5.03) M/mm3 Hgb 11.0 (10.1-14.3) gm/dl Hct 34.9 (30.3-42.9) % MCV 83 (79-97) fl MCH 26 L (28-32) pg MCHC 31 (30-34) % RDW 16.0 H (13.2-15.2) % Plt Count 273 (140-440) K/mm3 Lymph % (Auto) 22.3 (13.4-35.0) % [place] % (Auto) 7.5 H (0.0-7.3) % Eos % (Auto) 0.6 (0.0-4.3) % Baso % (Auto) 1.0 (0.0-1.8) % Lymph # 2.8 (1.2-5.4) K/mm3 [place] # 0.9 H (0.0-0.8) K/mm3 Eos # 0.1 (0.0-0.4) K/mm3 Baso # 0.1 (0.0-0.1) K/mm3 Seg Neutrophils % 68.6 (40.0-70.0) % Seg Neutrophils # 8.5 H (1.8-7.7) K/mm3 Sodium 135 L (137-145) mmol/L Potassium 4.5 (3.6-5.0) mmol/L Chloride 102.5 (98-107) mmol/L Carbon Dioxide 19 L (22-30) mmol/L Anion Gap 18 mmol/L BUN 7 (7-17) mg/dL Creatinine 0.6 L (0.7-1.2) mg/dL Estimated GFR > 60 ml/min BUN/Creatinine Ratio 11.66 % Glucose 98 (65-100) mg/dL Calcium 8.6 (8.4-10.2) mg/dL Total Bilirubin 0.20 (0.1-1.2) mg/dL AST 21 (5-40) units/L ALT 7 (7-56) units/L Alkaline Phosphatase 51 (35-129) units/L Total Creatine Kinase 62 (30-135) units/L Total Protein 6.9 (6.3-8.2) g/dL Albumin 3.2 L (3.9-5) g/dL Albumin/Globulin Ratio 0.9 % HCG, Qual (Negative) Urine Color (Yellow) Urine Turbidity (Clear) Urine pH (5.0-7.0) Ur Specific [employer] (1.003-1.030) Urine Protein (Negative) mg/dL Urine Glucose (UA) (Negative) mg/dL Urine Ketones (Negative) mg/dL Urine Blood (Negative) Urine Nitrite (Negative) Urine Bilirubin (Negative) Urine Urobilinogen (<2.0) mg/dL Ur Leukocyte Esterase (Negative) Urine WBC (Auto) (0.0-6.0) /HPF Urine RBC (Auto) (0.0-6.0) /HPF U Epithel Cells (Auto) (0-13.0) /HPF Urine Opiates Screen Urine Methadone Screen Ur Barbiturates Screen Ur Phencyclidine Scrn Ur Amphetamines Screen U Benzodiazepines Scrn Urine Cocaine Screen U Marijuana (THC) Screen Drugs of Abuse Note 01/26/17 01/26/17 01/26/17 Range/Units 20:49 22:45 22:57 WBC (4.5-11.0) K/mm3 RBC (3.65-5.03) M/mm3 Hgb (10.1-14.3) gm/dl Hct (30.3-42.9) % MCV (79-97) fl MCH (28-32) pg MCHC (30-34) % RDW (13.2-15.2) % Plt Count (140-440) K/mm3 Lymph % (Auto) (13.4-35.0) % [place] % (Auto) (0.0-7.3) % Eos % (Auto) (0.0-4.3) % Baso % (Auto) (0.0-1.8) % Lymph # (1.2-5.4) K/mm3 [place] # (0.0-0.8) K/mm3 Eos # (0.0-0.4) K/mm3 Baso # (0.0-0.1) K/mm3 Seg Neutrophils % (40.0-70.0) % Seg Neutrophils # (1.8-7.7) K/mm3 Sodium (137-145) mmol/L Potassium (3.6-5.0) mmol/L Chloride (98-107) mmol/L Carbon Dioxide (22-30) mmol/L Anion Gap mmol/L BUN (7-17) mg/dL Creatinine (0.7-1.2) mg/dL Estimated GFR ml/min BUN/Creatinine Ratio % Glucose (65-100) mg/dL Calcium (8.4-10.2) mg/dL Total Bilirubin (0.1-1.2) mg/dL AST (5-40) units/L ALT (7-56) units/L Alkaline Phosphatase (35-129) units/L Total Creatine Kinase (30-135) units/L Total Protein (6.3-8.2) g/dL Albumin (3.9-5) g/dL Albumin/Globulin Ratio % HCG, Qual Negative (Negative) Urine Color Yellow (Yellow) Urine Turbidity Clear (Clear) Urine pH 6.0 (5.0-7.0) Ur Specific [employer] 1.014 (1.003-1.030) Urine Protein <15 mg/dl (Negative) mg/dL Urine Glucose (UA) Neg (Negative) mg/dL Urine Ketones Neg (Negative) mg/dL Urine Blood Neg (Negative) Urine Nitrite Neg (Negative) Urine Bilirubin Neg (Negative) Urine Urobilinogen < 2.0 (<2.0) mg/dL Ur Leukocyte Esterase Neg (Negative) Urine WBC (Auto) 1.0 (0.0-6.0) /HPF Urine RBC (Auto) 4.0 (0.0-6.0) /HPF U Epithel Cells (Auto) 1.0 (0-13.0) /HPF Urine Opiates Screen Presumptive negative Urine Methadone Screen Presumptive negative Ur Barbiturates Screen Presumptive negative Ur Phencyclidine Scrn Presumptive negative Ur Amphetamines Screen Presumptive negative U Benzodiazepines Scrn Presumptive negative Urine Cocaine Screen Presumptive negative U Marijuana (THC) Screen Presumptive negative Drugs of Abuse Note Disclamer - Radiology Data Radiology results: report reviewed (ct head: naf), image reviewed (cxr: naf) - Medical Decision Making Patient has prolonged alteration of mental status and is minimally responsive. CT does not reveal any acute abnormality. Patient received Keppra and Vimpat IV in the ED. Given prolonged alteration in mental status she will be admitted to the hospital for further monitoring and treatment UA and UDS pending at disposition. - Differential Diagnosis postictal, drug ingestion, intracranial hemorrhage, psychiatric disorder Critical Care Time: No Critical care attestation.: If time is entered above; I have spent that time in minutes in the direct care of this critically ill patient, excluding procedure time. ED Disposition Clinical Impression: Seizure, Postictal state Disposition: OP ADMIT IP TO THIS HOSP Is pt being admited?: Yes Condition: Stable Time of Disposition: 23:03 (Dr Davis/hosp)
[2017-01-26 23:03] LABS: Urine Drugs of Abuse Note Disclamer
[2017-01-26 23:21] LABS: Bilirubin,Urine NEG (Negative); Blood,Urine NEG (Negative); Ketones,Urine NEG (Negative); Leukocyte Esterase,Urine NEG (Negative); Nitrite,Urine NEG (Negative); Protein,Urine <15 mg/dL mg/dL (Negative); Urobilinogen,Urine < 2.0 mg/dL (<2.0)
[2017-01-26] MEDS ORDERED: MILK OF MAGNESIA PO PRN (23:37)
[2017-01-26] MEDS ORDERED: ZOFRAN IV PRN (23:37)
[2017-01-26] MEDS ORDERED: DULCOLAX PR PRN (23:37)
[2017-01-26] MEDS ORDERED: TYLENOL PO PRN (23:37)
[2017-01-26] MEDS ORDERED: ATIVAN IV PRN (23:37)
--- NOTE | 2017-01-26 23:45 | History and Physical Report ---
History of Present Illness Date of examination: 01/26/17 History of present illness: 26 year old woman with history of a history of seizure was brought to the emergency room today because of seizure activity, multiple episodes starting last night. Patient is post ictal, unable to obtain a history or review of system PAST SURGICAL HISTORY: Unknown SOCIAL HISTORY: Unknown FAMILY HISTORY: Unknown Medications and Allergies Allergies Allergy/AdvReac Type Severity Reaction Status Date / Time Penicillins Allergy Unknown Verified 01/26/17 18:10 phenobarbital Allergy Unknown Verified 01/26/17 18:10 Home Medications Medication Instructions Recorded Confirmed Last Taken Type Lacosamide [Vimpat] 1 each PO DAILY 06/21/16 11/21/16 Unknown History Nitrofurantoin [place]/M-Cryst 100 mg PO Q12HR #14 capsule 06/21/16 11/21/16 Unknown Rx [Macrobid CAP] Lacosamide [Vimpat] 100 mg PO Q12HR #60 tablet 08/27/16 11/21/16 Unknown Rx levETIRAcetam [Keppra TAB] 750 mg PO BID 11/21/16 11/21/16 11/21/16 History levETIRAcetam [Keppra TAB] 500 mg PO BID #40 tablet 01/18/17 Unknown Rx Active Meds: Active Medications Acetaminophen (Tylenol) 650 mg PO Q4H PRN PRN Reason: Pain MILD(1-3)/Fever >100.5/CARRANZA Bisacodyl (Dulcolax) 10 mg MD QDAY PRN PRN Reason: Constipation unrelieved by MOM Enoxaparin Sodium (Lovenox) 30 mg SUB-Q QDAY PHIL Lorazepam (Ativan) 1 mg IV Q4H PRN PRN Reason: Seizures Magnesium Hydroxide (Milk Of Magnesia) 30 ml PO Q4H PRN PRN Reason: Constipation Ondansetron HCl (Zofran) 4 mg IV Q8H PRN PRN Reason: N/V unrelieved by Reglan Exam - Physical Exam Narrative exam: Gen. appearance: Patient lying in bed, no apparent distress HEENT: Normocephalic, atraumatic, pupils equally round and reactive to light, unable to do extraocular movement, and no sclericterus,. No JVD or thyromegaly or nodule,neck supple, no carotid bruit ,mucous membranes moist, no exudate or erythema Heart: S1, S2, regular rate and rhythm Lungs: Clear to auscultation bilaterally anteriorly, breathing comfortable Abdomen: Positive bowel sounds, nontender, nondistended, no organomegaly Extremity: No edema, cyanosis, clubbing Skin: No rash, nodules, warm, dry Neuro: sedated - Constitutional Vitals: Temp Pulse Resp BP Pulse Ox 99.2 F 89 12 101/24 99 01/26/17 22:57 01/26/17 22:57 01/26/17 22:57 01/26/17 22:57 01/26/17 22:57 Results - Labs CBC & Chem 7: 01/26/17 20:49 01/26/17 20:49 Labs: Abnormal lab results 01/26/17 01/26/17 Range/Units 20:49 20:49 WBC 12.5 H (4.5-11.0) K/mm3 MCH 26 L (28-32) pg RDW 16.0 H (13.2-15.2) % [place] % (Auto) 7.5 H (0.0-7.3) % [place] # 0.9 H (0.0-0.8) K/mm3 Seg Neutrophils # 8.5 H (1.8-7.7) K/mm3 Sodium 135 L (137-145) mmol/L Carbon Dioxide 19 L (22-30) mmol/L Creatinine 0.6 L (0.7-1.2) mg/dL Albumin 3.2 L (3.9-5) g/dL - Imaging and Cardiology EKG: image reviewed Chest x-ray: image reviewed CT Scan - head: report reviewed Assessment and Plan Status epilepticus Admit to medicine Status post IV Keppra in the emergency room Continue outpatient medications, start IV Ativan as needed for seizure activity DVT prophylaxis
[2017-01-27] MEDS ORDERED: ATIVAN ONE (01:32)
[2017-01-27 05:04] LABS: Basophils % (Auto) 0.8 % (0.0-1.8); Eosinophils % (Auto) 1.5 % (0.0-4.3); Hematocrit 34.3 % (30.3-42.9); Mean Corpuscular HGB Conc 32 % (30-34); Mean Corpuscular Hemoglobin 26 pg (28-32); Mean Corpuscular Volume 82 fl (79-97); Platelet Count 257 K/mm3 (140-440); Red Blood Count 4.18 M/mm3 (3.65-5.03); Red Cell Distribution Width 15.9 % (13.2-15.2); White Blood Count 8.7 K/mm3 (4.5-11.0)
[2017-01-27 05:22] LABS: Anion Gap 17 mmol/L; Blood Urea Nitrogen 7 mg/dL (7-17); Calcium 8.2 mg/dL (8.4-10.2); Carbon Dioxide 23 mmol/L (22-30); Chloride 102.4 mmol/L (98-107); Glucose 88 mg/dL (65-100); Potassium 3.9 mmol/L (3.6-5.0); Sodium 138 mmol/L (137-145)
--- NOTE | 2017-01-27 07:43 | XRay Report ---
Single view chest: History: Seizure. Findings: Normal cardiomediastinal silhouette. Trachea is midline. No consolidation, pneumothorax or pleural effusion. Impression: No acute cardiopulmonary findings.
--- NOTE | 2017-01-27 08:07 | Admit Criteria Form ---
Admission Criteria Documentation: SEIZURE Clinical Indications for Admission to Inpatient Care (Place 'X' for any and all applicable criteria): Admission is indicated for seizure and ANY ONE of the following(1)(2)(3)(4)(5): [ ]I. Inpatient admission required rather than observation care (Also use Seizure: Observation Care Criteria as appropriate) because of ANY ONE of the following: [ ]a) Altered mental status that is severe or persistent [ ]b) New focal neurologic deficit that is severe or persistent [ ]c) Metabolic disorder (eg, hypoglycemia, hyponatremia) that is severe or persistent [ ]d) Recurrent seizure [ ]e) Outpatient antiseizure regimen cannot be established (eg , patient cannot tolerate medication, initiation requires inpatient care) [ ]f) Need for ongoing intravenous infusion of antiseizure medication [ ]g) Cardiac arrhythmias of immediate concern [ ]h) Cerebral bleeding, hydrocephalus, or vasospasm monitoring (14) [ ]i) Increased intracranial pressure or cerebral edema monitoring (15) [ ]j) Other treatment or monitoring requiring inpatient admission [X ]II. Status epilepticus [A] or repetitive seizures not controlled with emergent treatment (6)(8) [ ]III. Brain disorder (eg, tumor, edema, and hydrocephalus) that requiring monitoring or intervention available only at inpatient level of care. [ ]IV. Brain insult (eg, severe trauma, stroke, drug toxicity, or withdrawal) that requires monitoring or intervention available only at inpatient level of care (10)(11) Extended stay beyond goal length of stay may be needed for (22) [ ]a) Complications of status epilepticus [ ]b) Refractory status epilepticus [ ]c) Etiology-specific therapy for conditions such as [employer] infection, head injury,eclampsia, severe metabolic abnormalities, and brain tumor [ ]d) Residual neurologic damage, [ ]e) Initiation of significant change to anticonvulsant treatment [ ]f) Older patients (65 years or older) [ ]g) Patient requiring intubation (eg, to protect airway) The original [employer] content created by [employer] has been revised. The portions of the content which have been revised are identified through the use of italic text or in bold, and [facility] [employer] has neither reviewed nor approved the modified material. All other unmodified content is copyright [facility] [employer]. Please see references footnoted in the original [facility] edition 2016 Admission Criteria Met: Yes
[2017-01-27 09:07] VITALS: BP 102/51
[2017-01-27] MEDS ORDERED: LOVENOX SUB-Q SCH ×2 (10:00)
[2017-01-27] MEDS ORDERED: KEPPRA PO SCH (10:00)
[2017-01-27] MEDS ORDERED: VIMPAT PO SCH (10:00)
--- NOTE | 2017-01-27 10:22 | Discharge Summary ---
Providers - Providers Date of Admission: 01/26/17 23:40 Date of discharge: 01/27/17 Attending physician: NAT ESCOBAR Primary care physician: POLICE CAPTAIN Hospitalization Reason for admission: seizure episode Condition: Stable Pertinent studies: Chest x-ray; no acute abnormality noted CT head without contrast; no CT evidence of acute abnormality Hospital course: Final diagnosis; Status epilepticus History of seizure disorder Mild leukocytosis resolved probably stress related Mild hyponatremia corrected Metabolic acidosis corrected Mild hypo albuminemia/mild protein calorie malnutrition History and hospital course; 26-year-old with significant past medical history of seizure disorder and noncompliance with medications was admitted through emergency room with the seizure episodes Patient had CT head without contrast did not show any acute abnormality, admitted to the hospital symptomatically managed, seizure medications resumed, placed on seizure protocols and seizure precautions, patient's symptoms significantly improved Did not have any new episodes of seizure On the day of discharge patient was comfortable no new complaints Vital signs are stable, [id number] evaluation and physical examination done by ar prior to discharge did not show any new changes Patient is hemodynamically and clinically stable for discharge and does not need any further acute inpatient care at this time Strongly advised not to drive or operate heavy machinery until cleared by primary care physician or neurologist The time of discharge patient is hemodynamically and clinically stable Disposition: DC-01 TO HOME OR SELFCARE Time spent for discharge: 31 min Core Measure Documentation - Palliative Care Palliative Care/ Comfort Measures: Not Applicable - Core Measures Any of the following diagnoses?: none Exam - Constitutional Vitals: Temp Pulse Resp BP Pulse Ox 98.7 F 69 16 102/51 99 01/27/17 07:15 01/27/17 07:15 01/27/17 07:15 01/27/17 07:15 01/27/17 09:01 General appearance: Present: no acute distress, well-nourished - EENT Eyes: Present: PERRL, EOM intact ENT: hearing intact, oropharyngeal erythema - Neck Neck: Present: supple, normal ROM - Respiratory Respiratory effort: normal Respiratory: bilateral: diminished, negative: rales, rhonchi, wheezing - Cardiovascular Rhythm: regular Heart Sounds: Present: S1 & S2 - Extremities Extremities: no ischemia, pulses intact, pulses symmetrical Peripheral Pulses: within normal limits - Abdominal General gastrointestinal: Present: soft, non-tender, non-distended, normal bowel sounds - Integumentary Integumentary: Present: clear, warm - Musculoskeletal Musculoskeletal: strength equal bilaterally, generalized weakness - Psychiatric Psychiatric: appropriate mood/affect, cooperative - Neurologic Neurologic: CNII-XII intact Plan Activity: no driving until cleared by PCP, other (seizure precautions) Diet: regular Additional Instructions: Follow private neurologist in 2-[address] or operate heavy machinery. Advised to comply with medications Follow up with: PRIMARY CARE,MD [Primary Care Provider] - 7 Days Prescriptions: levETIRAcetam [Keppra TAB] 750 mg PO BID #60 tablet
[2017-02-09] MEDS ORDERED: ATIVAN ONE (12:02)
== END 2017-01-27 12:36 | disposition home or self-care (01) | DRG 101 ==
LOC: ED 17:07 → 3A 23:40
PROVIDERS: ADMIT Internal Medicine; ATTEND Internal Medicine
DX: G40.901 Epilepsy, unspecified, not intractable, with status epilepticus (principal); Z98.891 History of uterine scar from previous surgery; Z98.51 Tubal ligation status; Z88.0 Allergy status to penicillin; Z88.8 Allergy status to other drugs, medicaments and biological substances
CPT/HCPCS: 36415; 70450; 71010; 80048; 80053; 80307; 81001; 82550; 84703; 85025; 87086; 96365; 96375; C9254; J1650; J1953; J2060

== ENCOUNTER 2017-02-27 00:39 | Inpatient (IN) | payer MEDICAID ==
--- NOTE | 2017-02-27 01:59 | Emergency Department Report ---
HPI - General Chief Complaint: Seizure Time Seen by Provider: 02/27/17 01:10 - HPI HPI: This is a 27-year-old Afro-Emirati female presents the emergency department by EMS after the patient had 2 witnessed seizures at home. Patient has a history of epilepsy and is on Vimpat and Keppra but compliance is unknown. When I see the patient in the emergency department upon presentation she is postictal. She does open her eyes, nods her head to answer questions and follows some commands but otherwise sometimes will just be staring off and therefore is a poor historian currently. The patient was admitted to [facility] last month for similar symptoms and a prolonged postictal state. ED Past Medical Hx - Past Medical History Previous Medical History?: Yes Hx Hypertension: No Hx CVA: No Hx Heart Attack/AMI: No Hx Congestive Heart Failure: No Hx Diabetes: No Hx Deep Vein Thrombosis: No Hx Pulmonary Embolism: No Hx GERD: No Hx Liver Disease: No Hx Renal Disease: No Hx Sickle Cell Disease: No Hx Arthritis: No Hx Headaches / Migraines: No Hx Seizures: Yes Hx Kidney Stones: No Hx Psychiatric Treatment: No Hx Asthma: No Hx COPD: No Hx Tuberculosis: No Hx Dementia: No Hx HIV: No - Surgical History Additional Surgical History: X 3. tubal ligation - Social History Smoking Status: Never Smoker Substance Use Type: None - Medications Home Medications: Home Medications Medication Instructions Recorded Confirmed Last Taken Type Ibuprofen [Motrin] 800 mg PO TID PRN 02/27/17 02/27/17 Unknown History Levofloxacin [Levaquin] 750 mg PO QDAY 02/27/17 02/27/17 Unknown History levETIRAcetam [Keppra TAB] 750 mg PO BID 02/27/17 02/27/17 Unknown History ED Review of Systems ROS: Stated complaint: SEIZURES Other details as noted in HPI Comment: Unobtainable due to pts medical conditions Physical Exam - Physical Exam Vital Signs: Vital Signs 02/27/17 02/27/17 00:54 01:38 Temperature 99 F Pulse Rate 97 H Respiratory 15 15 Rate Blood Pressure 119/74 Blood Pressure 119/74 [Left] O2 Sat by Pulse 98 98 Oximetry Physical Exam: GENERAL: The patient is well-developed well-nourished. HEENT: Normocephalic. Atraumatic. Patient mostly staring in front of her so hard to assess extraocular motions. Pupils equal reactive to light bilaterally. Patient has moist mucous membranes. NECK: Supple. Trachea is midline. Meningitic signs are noted. There is no adenopathy noted. CHEST/LUNGS: Clear to auscultation. There is no respiratory distress noted. HEART/CARDIOVASCULAR: Regular. There is no tachycardia. There is no gallop rub or murmur. ABDOMEN: Abdomen is soft, nontender. Patient has normal bowel sounds. There is no abdominal distention. SKIN: Skin is warm and dry. NEURO: The patient is awake but appears post ictal and/or confused. Follows some commands. Patient mostly nonverbal. MUSCULOSKELETAL: There is no tenderness or deformity. Radial pulse. 4 bilaterally. Cap refill less than 2 seconds. There is no evidence of acute injury. ED Course Vital Signs 02/27/17 02/27/17 00:54 01:38 Temperature 99 F Pulse Rate 97 H Respiratory 15 15 Rate Blood Pressure 119/74 Blood Pressure 119/74 [Left] O2 Sat by Pulse 98 98 Oximetry ED Medical Decision Making - Lab Data Result diagrams: 02/27/17 01:08 02/27/17 01:08 - EKG Data -: EKG Interpreted by Pr EKG shows normal: sinus rhythm (with sinus arrhythmia), axis, intervals, QRS complexes, ST-T waves Rate: normal - EKG Data When compared to previous EKG there are: previous EKG unavailable Interpretation: normal EKG - Radiology Data Radiology results: report reviewed CT of the head does not show any acute process including no hemorrhage, mass, shift, diffuse edema or skull fracture. - Medical Decision Making 27-year-old female presents post ictal by EMS from home after 2 witnessed seizures by family. Placed on Keppra and Vimpat. Labs are unremarkable and do not show any etiology of the patient's symptoms. CT of the head does not show any bleed, shift, mass or any acute process. Patient has been reevaluated multiple times over multiple hours and still appears post ictal and/or confused. She will be admitted to the hospital for further evaluation accepted for admission by the hospitalist, Dr. Davis. - Differential Diagnosis epilepsy, substance abuse, psychosis Critical Care Time: No Critical care attestation.: If time is entered above; I have spent that time in minutes in the direct care of this critically ill patient, excluding procedure time. ED Disposition Clinical Impression: Postictal state, Recurrent seizures Disposition: DC09 OP ADMIT IP TO THIS HOSP Is pt being admited?: Yes Condition: Fair Referrals: PRIMARY CARE, [Primary Care Provider] - 3-5 Days Time of Disposition: 04:55
[2017-02-27 02:48] LABS: Basophils % (Auto) 1.2 % (0.0-1.8); Eosinophils % (Auto) 0.3 % (0.0-4.3); Hematocrit 33.1 % (30.3-42.9); Hemoglobin 10.8 gm/dl (10.1-14.3); Mean Corpuscular HGB Conc 33 % (30-34); Mean Corpuscular Hemoglobin 27 pg (28-32); Mean Corpuscular Volume 82 fl (79-97); Platelet Count 233 K/mm3 (140-440); Red Blood Count 4.05 M/mm3 (3.65-5.03); Red Cell Distribution Width 17.3 % (13.2-15.2); White Blood Count 6.4 K/mm3 (4.5-11.0)
[2017-02-27 02:59] LABS: Anion Gap 18 mmol/L; BUN/Creatinine Ratio 11.66; Blood Urea Nitrogen 7 mg/dL (7-17); Calcium 9.2 mg/dL (8.4-10.2); Carbon Dioxide 23 mmol/L (22-30); Chloride 100.4 mmol/L (98-107); Glucose 105 mg/dL (65-100); Potassium 3.7 mmol/L (3.6-5.0); Sodium 138 mmol/L (137-145)
[2017-02-27 03:13] LABS: Bilirubin,Urine NEG (Negative); Blood,Urine NEG (Negative); Ketones,Urine NEG (Negative); Leukocyte Esterase,Urine TR (Negative); Nitrite,Urine NEG (Negative); Protein,Urine <15 mg/dL mg/dL (Negative); Urobilinogen,Urine < 2.0 mg/dL (<2.0)
[2017-02-27] MEDS ORDERED: KEPPRA 1,000 MG/NS 0.75% 100ML 1,000 MG/100 ML BAG IV ONE (03:18)
[2017-02-27 03:19] LABS: Urine Drugs of Abuse Note Disclamer
[2017-02-27] MEDS ORDERED: VIMPAT 100 MG in NACL 0.9% 100 ML IV ONE (03:19)
--- NOTE | 2017-02-27 04:43 | Cat Scan Report ---
FINAL REPORT PROCEDURE: CT HEAD/BRAIN WO CON TECHNIQUE: Computerized tomography of the head was performed without contrast material. HISTORY: Seizures, AMS COMPARISON: 02/09/2017 FINDINGS: Skull and scalp: Normal. Paranasal sinuses: Normal. Ventricles and subarachnoid spaces: Normal. Cerebrum: No evidence of hemorrhage, acute infarction or mass . Cerebellum and brainstem: No evidence of hemorrhage, acute infarction or mass. Vasculature: Normal. Comments: None. IMPRESSION: There is no evidence of an acute intracranial process.
[2017-02-27] MEDS ORDERED: ATIVAN IV PRN (05:34)
[2017-02-27] MEDS ORDERED: ZOFRAN IV PRN (05:34)
[2017-02-27] MEDS ORDERED: TYLENOL PO PRN (05:34)
--- NOTE | 2017-02-27 05:36 | History and Physical Report ---
Medications and Allergies Allergies Allergy/AdvReac Type Severity Reaction Status Date / Time Penicillins Allergy Unknown Verified 02/09/17 08:14 phenobarbital Allergy Unknown Verified 01/26/17 18:10 Home Medications Medication Instructions Recorded Confirmed Last Taken Type Ibuprofen [Motrin] 800 mg PO TID PRN 02/27/17 02/27/17 Unknown History Levofloxacin [Levaquin] 750 mg PO QDAY 02/27/17 02/27/17 Unknown History levETIRAcetam [Keppra TAB] 750 mg PO BID 02/27/17 02/27/17 Unknown History Exam - Constitutional Vitals: Temp Pulse Resp BP Pulse Ox 99 F 91 H 12 105/65 98 02/27/17 00:54 02/27/17 04:00 02/27/17 04:00 02/27/17 04:31 02/27/17 03:51 Results - Labs CBC & Chem 7: 02/27/17 01:08 02/27/17 01:08 Labs: Abnormal lab results 02/27/17 02/27/17 02/27/17 Range/Units 01:08 01:08 01:09 MCH 27 L (28-32) pg RDW 17.3 H (13.2-15.2) % Barnes % (Auto) 10.4 H (0.0-7.3) % Creatinine 0.6 L (0.7-1.2) mg/dL Glucose 105 H (65-100) mg/dL Phenytoin 1.0 L (10.0-20.0) mg/L
--- NOTE | 2017-02-27 06:09 | History and Physical Report ---
History of Present Illness Date of examination: 02/27/17 History of present illness: 27 year old woman with history of a history of seizure was brought to the emergency room today because she had 2 seizures at home,. Patient is post ictal , unable to obtain a history or review of system Past medical history: seizure PAST SURGICAL HISTORY: Unknown SOCIAL HISTORY: Unknown FAMILY HISTORY: Unknown Medications and Allergies Allergies Allergy/AdvReac Type Severity Reaction Status Date / Time Penicillins Allergy Unknown Verified 02/09/17 08:14 phenobarbital Allergy Unknown Verified 01/26/17 18:10 Home Medications Medication Instructions Recorded Confirmed Last Taken Type Ibuprofen [Motrin] 800 mg PO TID PRN 02/27/17 02/27/17 Unknown History Levofloxacin [Levaquin] 750 mg PO QDAY 02/27/17 02/27/17 Unknown History levETIRAcetam [Keppra TAB] 750 mg PO BID 02/27/17 02/27/17 Unknown History Active Meds: Active Medications Acetaminophen (Tylenol) 650 mg PO Q4H PRN PRN Reason: Pain MILD(1-3)/Fever >100.5/CARRANZA Enoxaparin Sodium (Lovenox) 30 mg SUB-Q QDAY PHIL Levetiracetam (Keppra) 750 mg PO BID PHIL Lorazepam (Ativan) 1 mg IV Q4H PRN PRN Reason: Seizures Ondansetron HCl (Zofran) 4 mg IV Q8H PRN PRN Reason: N/V unrelieved by Reglan Exam - Physical Exam Narrative exam: Gen. appearance: Patient lying in bed, no apparent distress HEENT: Normocephalic, atraumatic, pupils equally round and reactive to light, unable to do extraocular movement, and no sclericterus,. No JVD or thyromegaly or nodule,neck supple, no carotid bruit ,mucous membranes moist, no exudate or erythema Heart: S1, S2, regular rate and rhythm Lungs: Clear to auscultation bilaterally anteriorly, breathing comfortable Abdomen: Positive bowel sounds, nontender, nondistended, no organomegaly Extremity: No edema, cyanosis, clubbing Skin: No rash, nodules, warm, dry Neuro: sedated - Constitutional Vitals: Temp Pulse Resp BP Pulse Ox 99 F 91 H 12 105/65 98 02/27/17 00:54 02/27/17 04:00 02/27/17 04:00 02/27/17 04:31 02/27/17 03:51 Results - Labs CBC & Chem 7: 02/27/17 01:08 02/27/17 01:08 Labs: Abnormal lab results 02/27/17 02/27/17 02/27/17 Range/Units 01:08 01:08 01:09 MCH 27 L (28-32) pg RDW 17.3 H (13.2-15.2) % Villalba % (Auto) 10.4 H (0.0-7.3) % Creatinine 0.6 L (0.7-1.2) mg/dL Glucose 105 H (65-100) mg/dL Phenytoin 1.0 L (10.0-20.0) mg/L Assessment and Plan Assessment Status epilepticus Plan Admit to medicine Start Keppra , start IV Ativan as needed for seizure activity Start DVT prophylaxis
--- NOTE | 2017-02-27 07:29 | Admit Criteria Form ---
Admission Criteria Documentation: SEIZURE Clinical Indications for Admission to Inpatient Care (Place 'X' for any and all applicable criteria): Admission is indicated for seizure and ANY ONE of the following(1)(2)(3)(4)(5): [X]I. Inpatient admission required rather than observation care (Also use Seizure: Observation Care Criteria as appropriate) because of ANY ONE of the following: [ ]a) Altered mental status that is severe or persistent [ ]b) New focal neurologic deficit that is severe or persistent [ ]c) Metabolic disorder (eg, hypoglycemia, hyponatremia) that is severe or persistent [X]d) Recurrent seizure [ ]e) Outpatient antiseizure regimen cannot be established (eg , patient cannot tolerate medication, initiation requires inpatient care) [ ]f) Need for ongoing intravenous infusion of antiseizure medication [ ]g) Cardiac arrhythmias of immediate concern [ ]h) Cerebral bleeding, hydrocephalus, or vasospasm monitoring (14) [ ]i) Increased intracranial pressure or cerebral edema monitoring (15) [ ]j) Other treatment or monitoring requiring inpatient admission [ ]II. Status epilepticus [A] or repetitive seizures not controlled with emergent treatment (6)(8) [ ]III. Brain disorder (eg, tumor, edema, and hydrocephalus) that requiring monitoring or intervention available only at inpatient level of care. [ ]IV. Brain insult (eg, severe trauma, stroke, drug toxicity, or withdrawal) that requires monitoring or intervention available only at inpatient level of care (10)(11) Extended stay beyond goal length of stay may be needed for (22) [ ]a) Complications of status epilepticus [ ]b) Refractory status epilepticus [ ]c) Etiology-specific therapy for conditions such as RELIEF PHARMACIST infection, head injury,eclampsia, severe metabolic abnormalities, and brain tumor [ ]d) Residual neurologic damage, [ ]e) Initiation of significant change to anticonvulsant treatment [ ]f) Older patients (65 years or older) [ ]g) Patient requiring intubation (eg, to protect airway) The original [employer] [facility] content created by [employer] has been revised. The portions of the content which have been revised are identified through the use of italic text or in bold, and [facility] [employer] has neither reviewed nor approved the modified material. All other unmodified content is copyright [facility]. Please see references footnoted in the original [facility] edition 2016 Admission Criteria Met: Yes
[2017-02-27] MEDS ORDERED: LOVENOX SUB-Q SCH ×2 (10:00)
--- NOTE | 2017-02-27 15:27 | Event Note ---
Date: 02/27/17 patient seen and examined today, in no acute distress. continue current therapy. Discussed with nursings staff. Awaiting Neurology eval
[2017-02-27] MEDS: KEPPRA PO SCH (22:24)
[2017-02-28 06:13] LABS: Basophils % (Auto) 0.9 % (0.0-1.8); Eosinophils % (Auto) 1.5 % (0.0-4.3); Hematocrit 35.6 % (30.3-42.9); Hemoglobin 11.7 gm/dl (10.1-14.3); Mean Corpuscular HGB Conc 33 % (30-34); Mean Corpuscular Hemoglobin 27 pg (28-32); Mean Corpuscular Volume 81 fl (79-97); Platelet Count 284 K/mm3 (140-440); Red Blood Count 4.41 M/mm3 (3.65-5.03); Red Cell Distribution Width 17.5 % (13.2-15.2); White Blood Count 5.2 K/mm3 (4.5-11.0)
[2017-02-28 06:33] LABS: Anion Gap 21 mmol/L; Blood Urea Nitrogen 9 mg/dL (7-17); Carbon Dioxide 22 mmol/L (22-30); Chloride 100.1 mmol/L (98-107); Glucose 123 mg/dL (65-100); Potassium 3.9 mmol/L (3.6-5.0); Sodium 139 mmol/L (137-145)
[2017-02-28 09:30] VITALS: BP 97/54
[2017-02-28] MEDS: KEPPRA PO SCH (10:20)
--- NOTE | 2017-02-28 12:46 | Consultation ---
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 Medications and Allergies Allergies Allergy/AdvReac Type Severity Reaction Status Date / Time Penicillins Allergy Unknown Verified 02/09/17 08:14 phenobarbital Allergy Unknown Verified 01/26/17 18:10 Home Medications Medication Instructions Recorded Confirmed Last Taken Type Ibuprofen [Motrin] 800 mg PO TID PRN 02/27/17 02/27/17 Unknown History Levofloxacin [Levaquin] 750 mg PO QDAY 02/27/17 02/27/17 Unknown History levETIRAcetam [Keppra TAB] 750 mg PO BID 02/27/17 02/27/17 Unknown History Active Meds: Active Medications Acetaminophen (Tylenol) 650 mg PO Q4H PRN PRN Reason: Pain MILD(1-3)/Fever >100.5/CARRANZA Enoxaparin Sodium (Lovenox) 40 mg SUB-Q QDAY@1000 [facility] Last Admin: 02/28/17 10:20 Dose: 40 mg Levetiracetam (Keppra) 750 mg PO BID [facility] Last Admin: 02/28/17 10:20 Dose: 750 mg Lorazepam (Ativan) 1 mg IV Q4H PRN PRN Reason: Seizures Ondansetron HCl (Zofran) 4 mg IV Q8H PRN PRN Reason: N/V unrelieved by Reglan Exam - Constitutional Vitals: Temp Pulse Resp BP Pulse Ox 97.7 F 72 18 97/54 98 02/28/17 09:29 02/28/17 09:29 02/28/17 09:29 02/28/17 09:29 02/28/17 09:29 Results - Labs CBC & Chem 7: 02/28/17 05:42 02/28/17 05:42 Labs: Abnormal lab results 02/28/17 02/28/17 Range/Units 05:42 05:42 MCH 27 L (28-32) pg RDW 17.5 H (13.2-15.2) % Lymph % (Auto) 40.8 H (13.4-35.0) % Gordon % (Auto) 10.0 H (0.0-7.3) % Creatinine 0.6 L (0.7-1.2) mg/dL Glucose 123 H (65-100) mg/dL
--- NOTE | 2017-02-28 13:27 | Discharge Summary ---
Providers - Providers Date of Admission: 02/27/17 05:34 Attending physician: CINDY LEVY MD 02/28/17 08:32 Consult to Physician [CONS] Routine Consulting Provider: KIKI GRECO Reason For Exam: seizure Place consult to:: DR. GRECO Notified:: OFFICE Phone number called:: [phone] Was contact made?: Yes If yes, spoke with:: JESÚS Time called:: 09:25 Comment:: NOELLE NOTIFIED Primary care physician: WAREHOUSEMAN Hospitalization Condition: Fair Hospital course: 27 year old woman with history of a history of seizure was brought to the emergency room today because she had 2 seizures at home. He was lost to follow- up and has not been taking seizure medicines at home. She was seen by neurology. Head imaging was unremarkable. Therefore she was started on antiepileptic medication S was counseled about improved compliance and follow- up. Discharge diagnoses Status epilepticus Metabolic encephalopathy Disposition: TO HOME OR SELFCARE Time spent for discharge: 32 minutes Core Measure Documentation - Palliative Care Palliative Care/ Comfort Measures: Not Applicable - Core Measures Any of the following diagnoses?: none Exam - Constitutional Vitals: Temp Pulse Resp BP Pulse Ox 97.7 F 72 18 97/54 98 02/28/17 09:29 02/28/17 09:29 02/28/17 09:29 02/28/17 09:29 02/28/17 09:29 General appearance: Present: no acute distress, well-nourished - EENT Eyes: Present: PERRL ENT: hearing intact, clear oral mucosa - Neck Neck: Present: supple, normal ROM - Respiratory Respiratory effort: normal Respiratory: bilateral: CTA - Cardiovascular Heart Sounds: Present: S1 & S2. Absent: rub, click - Extremities Extremities: pulses symmetrical, No edema Peripheral Pulses: within normal limits - Abdominal General gastrointestinal: Present: soft, non-tender, non-distended, normal bowel sounds Female genitourinary: Present: normal - Integumentary Integumentary: Present: clear, warm, dry - Musculoskeletal Musculoskeletal: gait normal, strength equal bilaterally - Psychiatric Psychiatric: appropriate mood/affect, intact judgment & insight - Neurologic Neurologic: CNII-XII intact, moves all extremities Plan Follow up with: PRIMARY CAREMD [Primary Care Provider] - 3-5 Days Prescriptions: levETIRAcetam [Keppra TAB] 750 mg PO BID #60 tablet
--- NOTE | 2017-03-01 00:10 | Consultation ---
ROOM: 37-A. HISTORY OF PRESENT ILLNESS: This patient is a 27-year-old black female that presents to the [facility] after having a prolonged generalized seizure. She had a prior medical history of being on Keppra 750 mg b.i.d. She does not remember missing any doses of medication, however. What is interesting is that she states she had an onset of her seizures at an early age, at age 1. She did ask me whether she might have diabetes as a side note. Her glucose is 105 and 123 and she has a negative urinary glucose and as an issue it likely is negative. Reviewing of her drug screen is entirely negative. She has a phenytoin level of 1, although the patient mentions that she does not take phenytoin. 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 She does confirm that she had onset of seizures and seizures have been poorly controlled her entire life. PHYSICAL EXAMINATION: Today is entirely normal. Cranial nerves intact. Speech is clear. Good swallowing. Affect appropriate. Channel Sales Manager strength is equal. No tremors or asterixis. No seizure activity present. Motor tone is entirely symmetrical. IMPRESSION: Certainly, this patient has an epilepsy syndrome. 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 Keppra is typically not very effective for this. I mentioned to the patient, she should discuss with her outpatient neurologist the treatment for infantile spasms. Sabril is an excellent medicine for this. It might be a good choice. Her CT is negative. At this point, she can go home. I am documenting that she may be discharged on the Keppra as the Sabril is a complicated medication to get on the program through [employer] as the enrollment process is not straightforward at all, as it is obtained through a specialty pharmacy. Thanks for the consult. At this point, I did mention to the patient I do not think she is a diabetic. JOB# [id number] BRODY/NTS
== END 2017-02-28 15:30 | disposition home or self-care (01) | DRG 101 ==
LOC: ED 00:39 → SUATTDRO 00:39 → 3A 05:34
PROVIDERS: ADMIT Internal Medicine; ATTEND Internal Medicine
DX: G40.901 Epilepsy, unspecified, not intractable, with status epilepticus (principal); Z98.51 Tubal ligation status; Z88.0 Allergy status to penicillin; Z88.8 Allergy status to other drugs, medicaments and biological substances; Z79.899 Other long term (current) drug therapy
CPT/HCPCS: 36415; 70450; 80048; 80185; 80307; 81001; 81025; 85025; 93005; 93010; 96365; 96368; 99285; C9254; J1650; J1953; J2060; J2405

== ENCOUNTER 2017-03-01 17:37 | Emergency (ER) | payer MEDICAID ==
[2017-03-01 19:43] LABS: Hematocrit 35.7 % (30.3-42.9); Mean Corpuscular HGB Conc 31 % (30-34); Mean Corpuscular Hemoglobin 26 pg (28-32); Mean Corpuscular Volume 84 fl (79-97); Platelet Count 257 K/mm3 (140-440); Red Blood Count 4.23 M/mm3 (3.65-5.03); Red Cell Distribution Width 17.7 % (13.2-15.2); White Blood Count 6.4 K/mm3 (4.5-11.0)
[2017-03-01 19:59] LABS: Alanine Aminotransferase 7 units/L (7-56); Albumin 4.1 g/dL (3.9-5); Albumin/Globulin Ratio 1.1 %; Alkaline Phosphatase 52 units/L (35-129); Anion Gap 17 mmol/L; Blood Urea Nitrogen 7 mg/dL (7-17); Calcium 9.3 mg/dL (8.4-10.2); Carbon Dioxide 24 mmol/L (22-30); Chloride 99.7 mmol/L (98-107); Glucose 92 mg/dL (65-100); Potassium 3.9 mmol/L (3.6-5.0); Sodium 137 mmol/L (137-145); Total Protein 7.7 g/dL (6.3-8.2)
[2017-03-01 20:18] LABS: Urine Drugs of Abuse Note Disclamer
[2017-03-01 20:36] LABS: Bacteria,Urine 1+ /HPF (Negative); Bilirubin,Urine NEG (Negative); Blood,Urine NEG (Negative); Ketones,Urine NEG (Negative); Leukocyte Esterase,Urine MOD (Negative); Mucus,Urine FEW /HPF; Nitrite,Urine NEG (Negative); Protein,Urine <15 mg/dL mg/dL (Negative); Urobilinogen,Urine < 2.0 mg/dL (<2.0)
--- NOTE | 2017-03-01 20:56 | Emergency Department Report ---
ED General Adult HPI - General Chief complaint: Altered Mental Status Stated complaint: HALLUCINATIONS Time Seen by Provider: 03/01/17 18:27 Source: patient Mode of arrival: Stretcher Limitations: Altered Mental Status - History of Present Illness Initial comments: History is limited by patient's condition. Patient presents with visual hallucination. History is obtained by EMS. Patient had a seizure and then she started seeing something and talking to something that wasn't there. Patient's boyfriend called EMS because of this. Patient became combative when EMS was called and and was placed in 4 point restraints. History is limited due to patient not wanting to speak. Severity scale (0 -10): 0 - Related Data Home Medications Medication Instructions Recorded Confirmed Last Taken Ibuprofen [Motrin 800 MG tab] 800 mg PO TID PRN 02/27/17 02/27/17 Unknown Previous Rx's Medication Instructions Recorded Last Taken Type levETIRAcetam [Keppra TAB] 750 mg PO BID #60 tablet 02/28/17 Unknown Rx Allergies Allergy/AdvReac Type Severity Reaction Status Date / Time Penicillins Allergy Unknown Verified 02/09/17 08:14 phenobarbital Allergy Unknown Verified 01/26/17 18:10 ED Review of Systems ROS: Stated complaint: HALLUCINATIONS Other details as noted in HPI Comment: Unobtainable due to pts medical conditions (patient refuses to do the review of symptoms) ED Past Medical Hx - Past Medical History Hx Hypertension: No Hx CVA: No Hx Heart Attack/AMI: No Hx Congestive Heart Failure: No Hx Diabetes: No Hx Deep Vein Thrombosis: No Hx Pulmonary Embolism: No Hx GERD: No Hx Liver Disease: No Hx Renal Disease: No Hx Sickle Cell Disease: No Hx Arthritis: No Hx Headaches / Migraines: No Hx Seizures: Yes Hx Kidney Stones: No Hx Psychiatric Treatment: No Hx Asthma: No Hx COPD: No Hx Tuberculosis: No Hx Dementia: No Hx HIV: No - Surgical History Past Surgical History?: Yes Additional Surgical History: X 3. tubal ligation - Social History Smoking Status: Unknown if ever smoked - Medications Home Medications: Home Medications Medication Instructions Recorded Confirmed Last Taken Type Ibuprofen [Motrin 800 MG tab] 800 mg PO TID PRN 02/27/17 02/27/17 Unknown History levETIRAcetam [Keppra TAB] 750 mg PO BID #60 tablet 02/28/17 Unknown Rx ED Physical Exam - General Limitations: Altered Mental Status General appearance: other (she just stares blankly when you speak to her) - Head Head exam: Present: atraumatic, normocephalic - Eye Eye exam: Present: normal appearance, EOMI - ENT ENT exam: Present: normal exam - Neck Neck exam: Present: normal inspection - Respiratory Respiratory exam: Present: normal lung sounds bilaterally - Cardiovascular Cardiovascular Exam: Present: regular rate - GI/Abdominal GI/Abdominal exam: Present: soft, distended - Extremities Exam Extremities exam: Present: normal inspection, tenderness - Back Exam Back exam: Present: normal inspection - Neurological Exam Neurological exam: Present: CN II-XII intact - Psychiatric Psychiatric exam: Absent: homicidal ideation, suicidal ideation - Skin Skin exam: Present: warm ED Course Vital Signs 03/01/17 03/01/17 18:04 22:41 Temperature 98 F Pulse Rate 94 H 88 Respiratory 16 18 Rate Blood Pressure 106/69 118/76 [Right] O2 Sat by Pulse 100 97 Oximetry - Reevaluation(s) Reevaluation #1: 03/01/17 22:09 I have reevaluated the patient patient states that she had a seizure and she may have started talking to something that wasn't there. Patient denies having any psych history or having any hallucinations. She also states that she understands why she is in the emergency department. Patient is cooperative with exam and states that if she can go. I will have patient evaluated by mental health worker. Patient has been cleared by mental health worker patient is not suicidal, not homicidal, can make her own decisions. She has not experiencing any psychosis 03/02/17 01:56 Reevaluation #2: 03/01/17 23:06 And has been cleared by mental health worker. Patient denies having any suicidal or homicidal ideation. Patient states that she has not token her Keppra. Just because she was really busy today with a court case and so she forgot. Dose patient's Keppra today. Discussed the patient that she needs to take her Keppra. ED Medical Decision Making - Lab Data Result diagrams: 03/01/17 19:18 03/01/17 19:18 Lab Results 03/01/17 03/01/17 03/01/17 Range/Units 19:18 19:18 19:18 WBC 6.4 (4.5-11.0) K/mm3 RBC 4.23 (3.65-5.03) M/mm3 Hgb 11.0 (10.1-14.3) gm/dl Hct 35.7 (30.3-42.9) % MCV 84 (79-97) fl MCH 26 L (28-32) pg MCHC 31 (30-34) % RDW 17.7 H (13.2-15.2) % Plt Count 257 (140-440) K/mm3 Sodium 137 (137-145) mmol/L Potassium 3.9 (3.6-5.0) mmol/L Chloride 99.7 (98-107) mmol/L Carbon Dioxide 24 (22-30) mmol/L Anion Gap 17 mmol/L BUN 7 (7-17) mg/dL Creatinine 0.5 L (0.7-1.2) mg/dL Estimated GFR > 60 ml/min BUN/Creatinine Ratio 14.00 % Glucose 92 (65-100) mg/dL Calcium 9.3 (8.4-10.2) mg/dL Total Bilirubin 0.40 (0.1-1.2) mg/dL AST 12 (5-40) units/L ALT 7 (7-56) units/L Alkaline Phosphatase 52 (35-129) units/L Total Protein 7.7 (6.3-8.2) g/dL Albumin 4.1 (3.9-5) g/dL Albumin/Globulin Ratio 1.1 % HCG, Quant < 2 (0-4) mIU/mL Urine Color (Yellow) Urine Turbidity (Clear) Urine pH (5.0-7.0) Ur Specific [place] (1.003-1.030) Urine Protein (Negative) mg/dL Urine Glucose (UA) (Negative) mg/dL Urine Ketones (Negative) mg/dL Urine Blood (Negative) Urine Nitrite (Negative) Urine Bilirubin (Negative) Urine Urobilinogen (<2.0) mg/dL Ur Leukocyte Esterase (Negative) Urine WBC (Auto) (0.0-6.0) /HPF Urine RBC (Auto) (0.0-6.0) /HPF U Epithel Cells (Auto) (0-13.0) /HPF Urine Bacteria (Auto) (Negative) /HPF Calcium Oxalate Crystal Urine Mucus /HPF Urine Yeast (Budding) /HPF Urine Opiates Screen Urine Methadone Screen Ur Barbiturates Screen Ur Phencyclidine Scrn Ur Amphetamines Screen U Benzodiazepines Scrn Urine Cocaine Screen U Marijuana (THC) Screen Drugs of Abuse Note Plasma/Serum Alcohol (0-0.07) gm% 03/01/17 03/01/17 03/01/17 Range/Units 19:18 20:17 20:17 WBC (4.5-11.0) K/mm3 RBC (3.65-5.03) M/mm3 Hgb (10.1-14.3) gm/dl Hct (30.3-42.9) % MCV (79-97) fl MCH (28-32) pg MCHC (30-34) % RDW (13.2-15.2) % Plt Count (140-440) K/mm3 Sodium (137-145) mmol/L Potassium (3.6-5.0) mmol/L Chloride (98-107) mmol/L Carbon Dioxide (22-30) mmol/L Anion Gap mmol/L BUN (7-17) mg/dL Creatinine (0.7-1.2) mg/dL Estimated GFR ml/min BUN/Creatinine Ratio % Glucose (65-100) mg/dL Calcium (8.4-10.2) mg/dL Total Bilirubin (0.1-1.2) mg/dL AST (5-40) units/L ALT (7-56) units/L Alkaline Phosphatase (35-129) units/L Total Protein (6.3-8.2) g/dL Albumin (3.9-5) g/dL Albumin/Globulin Ratio % HCG, Quant (0-4) mIU/mL Urine Color Yellow (Yellow) Urine Turbidity Clear (Clear) Urine pH 5.0 (5.0-7.0) Ur Specific [place] 1.014 (1.003-1.030) Urine Protein <15 mg/dl (Negative) mg/dL Urine Glucose (UA) Neg (Negative) mg/dL Urine Ketones Neg (Negative) mg/dL Urine Blood Neg (Negative) Urine Nitrite Neg (Negative) Urine Bilirubin Neg (Negative) Urine Urobilinogen < 2.0 (<2.0) mg/dL Ur Leukocyte Esterase Mod (Negative) Urine WBC (Auto) 5.0 (0.0-6.0) /HPF Urine RBC (Auto) 10.0 (0.0-6.0) /HPF U Epithel Cells (Auto) 5.0 (0-13.0) /HPF Urine Bacteria (Auto) 1+ (Negative) /HPF Calcium Oxalate Crystal Few Urine Mucus Few /HPF Urine Yeast (Budding) 1+ /HPF Urine Opiates Screen Presumptive negative Urine Methadone Screen Presumptive negative Ur Barbiturates Screen Presumptive negative Ur Phencyclidine Scrn Presumptive negative Ur Amphetamines Screen Presumptive negative U Benzodiazepines Scrn Presumptive negative Urine Cocaine Screen Presumptive negative U Marijuana (THC) Screen Presumptive negative Drugs of Abuse Note Disclamer Plasma/Serum Alcohol < 0.01 (0-0.07) gm% - Medical Decision Making Chief medical diagnosis: Postictal state secondary to seizure Differential multiple diagnosis: Substance induced mood disorder, hyponatremia, hypokalemia, bipolar disorder, We'll get CBC, CMP, urine drug screen, urine , Patient has been in [place] by mental health worker and I have personally reevaluated the patient patient states that she hasn't taken her seizure medication today because of a court date. And she was really stressed out and forgot to take it. Discussed with patient the importance of taking her antiepileptic medication. Patient's laboratory findings do not show a metabolic disorder patient's urine drug screen shows no signs of drugs of abuse. Discussed with mental health worker and we both agree that patient can go home. Discussed outpatient and engaged and shared decision making. Patient is okay to go home. Critical care attestation.: If time is entered above; I have spent that time in minutes in the direct care of this critically ill patient, excluding procedure time. ED Disposition Clinical Impression: Seizure, Noncompliance with medication regimen Disposition: DC-01 TO HOME OR SELFCARE Is pt being admited?: No Does the pt Need Aspirin: No Condition: Stable Referrals: PRIMARY CARE, [Primary Care Provider] - 3-5 Days DANIEL MOHAN MD, PHD [Staff Physician] - 3-5 Days Time of Disposition: 23:10
[2017-03-01] MEDS ORDERED: KEPPRA PO ONE (22:02)
[2017-03-01 22:43] VITALS: BP 118/76
== END 2017-03-01 23:38 | disposition home or self-care (01) ==
LOC: ED 17:37 → EEVIPCON 17:37 → ED 23:38
DX: R56.9 Unspecified convulsions (principal); Z88.0 Allergy status to penicillin; Z88.8 Allergy status to other drugs, medicaments and biological substances
CPT/HCPCS: 36415; 80053; 80307; 81001; 84702; 85027; 99284; G0480; 80320

== ENCOUNTER 2017-03-07 10:02 | Emergency (ER) | payer MEDICAID ==
[2017-03-07] MEDS ORDERED: KEPPRA 1,000 MG/NS 0.75% 100ML 1,000 MG/100 ML BAG IV ONE ×2 (10:15→10:17)
[2017-03-07] MEDS ORDERED: NACL 0.9% 1000 ML 1,000 ML IV ONE (12:24)
--- NOTE | 2017-03-07 12:31 | Emergency Department Report ---
ED Seizure HPI - General Chief Complaint: Seizure Stated Complaint: SEIZURE Time Seen by Provider: 03/07/17 11:40 Source: EMS Mode of arrival: Stretcher Limitations: Altered Mental Status - History of Present Illness MD Complaint: seizure, feel seizure coming on -: Gradual Description of Episode: loss of consciousness, tonic-clonic movement Witnessed:: Yes Trauma: No Seizure History: known seizure disorder, history of withdrawal se Place: home Possible Precipitating Event: none Associated Symptoms: denies other symptoms. denies: chest pain, confusion, cough, diaphoresis, fever/chills, loss of appetite, rash, shortness of breath - Related Data Home Medications Medication Instructions Recorded Confirmed Last Taken Ibuprofen [Motrin 800 MG tab] 800 mg PO TID PRN 02/27/17 02/27/17 Unknown Previous Rx's Medication Instructions Recorded Last Taken Type levETIRAcetam [Keppra TAB] 750 mg PO BID #60 tablet 03/07/17 Unknown Rx Allergies Allergy/AdvReac Type Severity Reaction Status Date / Time Penicillins Allergy Unknown Verified 02/09/17 08:14 phenobarbital Allergy Unknown Verified 01/26/17 18:10 ED Review of Systems ROS: Stated complaint: SEIZURE Other details as noted in HPI Comment: Unobtainable due to pts medical conditions ED Past Medical Hx - Past Medical History Previous Medical History?: Yes Hx Hypertension: No Hx CVA: No Hx Heart Attack/AMI: No Hx Congestive Heart Failure: No Hx Diabetes: No Hx Deep Vein Thrombosis: No Hx Pulmonary Embolism: No Hx GERD: No Hx Liver Disease: No Hx Renal Disease: No Hx Sickle Cell Disease: No Hx Arthritis: No Hx Headaches / Migraines: No Hx Seizures: Yes Hx Kidney Stones: No Hx Psychiatric Treatment: No Hx Asthma: No Hx COPD: No Hx Tuberculosis: No Hx Dementia: No Hx HIV: No - Surgical History Past Surgical History?: Yes Additional Surgical History: X 3. tubal ligation - Social History Smoking Status: Unknown if ever smoked - Medications Home Medications: Home Medications Medication Instructions Recorded Confirmed Last Taken Type Ibuprofen [Motrin 800 MG tab] 800 mg PO TID PRN 02/27/17 02/27/17 Unknown History levETIRAcetam [Keppra TAB] 750 mg PO BID #60 tablet 03/07/17 Unknown Rx ED Physical Exam - General Limitations: Altered Mental Status General appearance: lethargic, obtunded - Head Head exam: Present: atraumatic, normocephalic - Eye Eye exam: Present: normal appearance, PERRL, EOMI - ENT ENT exam: Present: normal exam, normal orophraynx - Neck Neck exam: Present: normal inspection - Respiratory Respiratory exam: Present: normal lung sounds bilaterally - Cardiovascular Cardiovascular Exam: Present: regular rate, normal rhythm - GI/Abdominal GI/Abdominal exam: Absent: distended, tenderness, guarding, rebound - Extremities Exam Extremities exam: Present: normal inspection, full ROM - Back Exam Back exam: Present: normal inspection, full ROM - Neurological Exam Neurological exam: Present: alert, altered, CN II-XII intact - Skin Skin exam: Present: warm ED Course Vital Signs 03/07/17 10:23 Temperature 98.7 F Pulse Rate 91 H Respiratory 14 Rate Blood Pressure 103/69 O2 Sat by Pulse 100 Oximetry ED Medical Decision Making - EKG Data When compared to previous EKG there are: no significant change Interpretation: no acute changes - Radiology Data Radiology results: report reviewed, image reviewed Critical care attestation.: If time is entered above; I have spent that time in minutes in the direct care of this critically ill patient, excluding procedure time. ED Disposition Clinical Impression: Seizure, Noncompliance with medication regimen, Seizure Disposition: DC- TO HOME OR SELFCARE Is pt being admited?: No Does the pt Need Aspirin: No Condition: Critical Instructions: Epilepsy (ED) Prescriptions: levETIRAcetam [Keppra TAB] 750 mg PO BID #60 tablet Referrals: PRIMARY CARE, [Primary Care Provider] - 3-5 Days
[2017-03-07 13:00] LABS: Basophils % (Auto) 0.6 % (0.0-1.8); Eosinophils % (Auto) 0.3 % (0.0-4.3); Hemoglobin 11.3 gm/dl (10.1-14.3); Mean Corpuscular HGB Conc 32 % (30-34); Mean Corpuscular Volume 80 fl (79-97); Platelet Count 271 K/mm3 (140-440); Red Blood Count 4.36 M/mm3 (3.65-5.03); Red Cell Distribution Width 17.8 % (13.2-15.2); White Blood Count 11.5 K/mm3 (4.5-11.0)
[2017-03-07 13:01] LABS: Mean Corpuscular Hemoglobin 26 pg (28-32)
[2017-03-07 13:19] LABS: Alanine Aminotransferase 8 units/L (7-56); Albumin 3.8 g/dL (3.9-5); Alkaline Phosphatase 53 units/L (35-129); Anion Gap 19 mmol/L; Blood Urea Nitrogen 8 mg/dL (7-17); Calcium 8.3 mg/dL (8.4-10.2); Carbon Dioxide 18 mmol/L (22-30); Chloride 105.1 mmol/L (98-107); Glucose 91 mg/dL (65-100); Potassium 4.2 mmol/L (3.6-5.0); Sodium 138 mmol/L (137-145); Total Protein 7.6 g/dL (6.3-8.2)
--- NOTE | 2017-03-07 13:45 | Cat Scan Report ---
CT HEAD WITHOUT CONTRAST: HISTORY: Seizure. Serial contiguous axial images were obtained through the cranium. Intravenous contrast material was not administered. The ventricles are normal in size and appearance. There is no mass effect or midline shift. No areas of abnormally increased or decreased attenuation are seen. No mass lesion is seen. The mastoid air cells and visualized portions of the sinuses are normal. IMPRESSION: Cranial CT scan within normal limits. No significant change since 02/27/17.
[2017-03-07 14:03] VITALS: BP 104/64
== END 2017-03-07 15:45 | disposition home or self-care (01) ==
LOC: ED 10:02
DX: G40.909 Epilepsy, unspecified, not intractable, without status epilepticus (principal); Z88.0 Allergy status to penicillin; Z88.8 Allergy status to other drugs, medicaments and biological substances
CPT/HCPCS: 36415; 70450; 80053; 82962; 85025; 96361; 96374; 99285; J1953; J7030

== ENCOUNTER 2017-03-07 21:48 | Emergency (ER) | payer MEDICAID ==
[2017-03-07 23:18] LABS: Eosinophils % (Auto) 1.6 % (0.0-4.3); Hematocrit 32.5 % (30.3-42.9); Hemoglobin 10.7 gm/dl (10.1-14.3); Mean Corpuscular HGB Conc 33 % (30-34); Mean Corpuscular Hemoglobin 27 pg (28-32); Mean Corpuscular Volume 82 fl (79-97); Platelet Count 266 K/mm3 (140-440); Red Blood Count 3.97 M/mm3 (3.65-5.03); Red Cell Distribution Width 17.5 % (13.2-15.2); White Blood Count 9.5 K/mm3 (4.5-11.0)
[2017-03-07 23:37] LABS: Anion Gap 19 mmol/L; Blood Urea Nitrogen 5 mg/dL (7-17); Calcium 8.4 mg/dL (8.4-10.2); Carbon Dioxide 21 mmol/L (22-30); Chloride 103.9 mmol/L (98-107); Creatine Kinase 83 units/L (30-135); Glucose 91 mg/dL (65-100); Potassium 3.4 mmol/L (3.6-5.0); Sodium 140 mmol/L (137-145)
[2017-03-08] MEDS ORDERED: KEPPRA 1,000 MG/NS 0.75% 100ML 1,000 MG/100 ML BAG IV ONE (00:18)
--- NOTE | 2017-03-08 01:12 | Emergency Department Report ---
HPI - General Time Seen by Provider: 03/07/17 22:02 - HPI HPI: This is a 27-year-old female presents to the emergency department by EMS from home after having a seizure. The patient was at [facility] earlier today for similar symptoms. At that time she was given a loading dose of Keppra, monitored and eventually discharged home to follow up with primary care. Patient says that she was doing fine but then had a seizure this evening and now complains of a mild headache. I know in the past , having seen this patient previously, the patient was on both Keppra and Vimpat. However the patient says that she is not currently taking the Vimpat. She denies any fever, chest pain, shortness of breath, vision change or fever. ED Past Medical Hx - Past Medical History Hx Hypertension: No Hx CVA: No Hx Heart Attack/AMI: No Hx Congestive Heart Failure: No Hx Diabetes: No Hx Deep Vein Thrombosis: No Hx Pulmonary Embolism: No Hx GERD: No Hx Liver Disease: No Hx Renal Disease: No Hx Sickle Cell Disease: No Hx Arthritis: No Hx Headaches / Migraines: No Hx Seizures: Yes Hx Kidney Stones: No Hx Psychiatric Treatment: No Hx Asthma: No Hx COPD: No Hx Tuberculosis: No Hx Dementia: No Hx HIV: No - Surgical History Additional Surgical History: X 3. tubal ligation - Social History Smoking Status: Unknown if ever smoked - Medications Home Medications: Home Medications Medication Instructions Recorded Confirmed Last Taken Type Ibuprofen [Motrin 800 MG tab] 800 mg PO TID PRN 02/27/17 02/27/17 Unknown History levETIRAcetam [Keppra TAB] 750 mg PO BID #60 tablet 03/08/17 Unknown Rx ED Review of Systems ROS: Stated complaint: SEIZURES Other details as noted in HPI Comment: All other systems reviewed and negative Constitutional: denies: chills, fever Eyes: denies: eye pain, eye discharge, vision change ENT: denies: ear pain, throat pain Respiratory: denies: cough, shortness of breath, wheezing Cardiovascular: denies: chest pain, palpitations Gastrointestinal: denies: abdominal pain, nausea, diarrhea Genitourinary: denies: urgency, dysuria, discharge Musculoskeletal: denies: back pain, joint swelling, arthralgia Skin: denies: rash, lesions Neurological: headache, other (seizure). denies: numbness, paresthesias Physical Exam - Physical Exam Vital Signs: Vital Signs 03/07/17 23:50 Temperature 98.5 F Pulse Rate 77 Respiratory 16 Rate Blood Pressure 98/60 [Left] O2 Sat by Pulse 99 Oximetry Physical Exam: GENERAL: The patient is well-developed well-nourished. ENT: Normocephalic. Atraumatic. Patient has moist mucous membranes. EYES: Extraocular motions are intact. Pupils equal reactive to light bilaterally. No nystagmus. NECK: Supple. Trachea is mid line. CHEST/LUNGS: Clear to auscultation. There is no respiratory distress noted. HEART/CARDIOVASCULAR: Regular. There is mild to moderate tachycardia. There is no gallop rub or murmur. ABDOMEN: Abdomen is soft, nontender. Patient has normal bowel sounds. There is no abdominal distention. SKIN: Skin is warm and dry. NEURO: The patient appears fatigued and possibly postictal but is otherwise awake and able to answer questions appropriately, AAO 3. The patient is cooperative. The patient has no sensory or motor deficits. The patient has normal speech. MUSCULOSKELETAL: There is no tenderness or deformity. There is no limitation range of motion. There is no evidence of acute injury. ED Course Vital Signs 03/07/17 23:50 Temperature 98.5 F Pulse Rate 77 Respiratory 16 Rate Blood Pressure 98/60 [Left] O2 Sat by Pulse 99 Oximetry ED Medical Decision Making - Lab Data Result diagrams: 03/07/17 22:56 03/07/17 22:56 - EKG Data -: EKG Interpreted by Ak EKG shows normal: sinus rhythm (sinus arrhythmia), axis, intervals, QRS complexes (Q waves to the septal leads), ST-T waves Rate: normal - EKG Data When compared to previous EKG there are: previous EKG unavailable Interpretation: other (sinus arrhythmia with normal rate, Q waves to the septal leads) - Medical Decision Making 27-year-old female with a history of epilepsy, also a history of medication noncompliance, presents to the emergency department with a complaint of a seizure prior to presentation. The patient was at [facility] earlier in the day for similar symptoms. Patient is fatigued but is awake and alert since being in the emergency department. Her labs are mostly unremarkable and do not show any etiology of her symptoms. EKG does not show any ST elevation IA or dysrhythmia. Vital signs stable throughout her ED course. The patient was reevaluated multiple times for multiple hours and there has been no further seizure-like activity. She confirms that she is no longer taking Vimpat but it is unknown whether she stopped taking it or it is no longer prescribed. The patient says that she has an appointment on the for her neurologist. Since the patient has had multiple visits for this, previous CT of the head, or any current neurological deficits, I did not feel that CT imaging of the head was necessary at this time. However the patient has been encouraged to return to the emergency department with any further seizure-like activity or any acute distress. She was seen ambulatory in the emergency department and appears stable doing so. Critical Care Time: No Critical care attestation.: If time is entered above; I have spent that time in minutes in the direct care of this critically ill patient, excluding procedure time. ED Disposition Clinical Impression: Seizure Epilepsy Qualifiers: Epilepsy type: unspecified Intractability: not intractable Status epilepticus: without status epilepticus Qualified Code(s): G40.909 - Epilepsy, unspecified, not intractable, without status epilepticus Disposition: DC-01 TO HOME OR SELFCARE Is pt being admited?: No Condition: Stable Instructions: Epilepsy (ED) Additional Instructions: Please follow-up with your neurologist as previously scheduled. Return to the emergency Department with any worsening of her symptoms or any recurrent seizures or any acute distress. Prescriptions: levETIRAcetam [Keppra TAB] 750 mg PO BID #60 tablet Referrals: PRIMARY CARE [Primary Care Provider] - 3-5 Days Time of Disposition: 02:00
[2017-03-08] MEDS ORDERED: ATIVAN ONE (04:25)
[2017-03-08 05:10] VITALS: BP 110/70
[2017-03-08] MEDS ORDERED: KEPPRA 1,000 MG in D5W 100 ML IV ONE (05:49)
[2017-03-08] MEDS ORDERED: CEREBYX IV ONE ×2 (05:51→06:00)
[2017-03-08] MEDS ORDERED: NACL IV ONE (06:00)
[2017-03-08] MEDS ORDERED: [UNRECOGNIZED DRUG - OTHER] IV ONE (06:00)
== END 2017-03-08 09:53 | disposition home or self-care (01) ==
LOC: ED 21:48
DX: G40.909 Epilepsy, unspecified, not intractable, without status epilepticus (principal)
CPT/HCPCS: 36415; 80048; 82550; 84443; 84703; 85025; 93005; 93010; 96365; 96375; 99284; G0480; J1953; Q2009; 80320; J2060

== ENCOUNTER 2017-03-25 13:19 | Emergency (ER) | payer SELFPAY ==
[2017-03-25 14:12] LABS: Basophils % (Auto) 0.6 % (0.0-1.8); Hemoglobin 10.9 gm/dl (10.1-14.3); Mean Corpuscular HGB Conc 33 % (30-34); Mean Corpuscular Volume 78 fl (79-97); Platelet Count 248 K/mm3 (140-440); Red Blood Count 4.23 M/mm3 (3.65-5.03); Red Cell Distribution Width 17.8 % (13.2-15.2); White Blood Count 11.2 K/mm3 (4.5-11.0)
[2017-03-25 14:27] LABS: Mean Corpuscular Hemoglobin 26 pg (28-32)
[2017-03-25 14:28] LABS: Alanine Aminotransferase 7 units/L (7-56); Albumin 3.8 g/dL (3.9-5); Alkaline Phosphatase 48 units/L (35-129); Anion Gap 17 mmol/L; Blood Urea Nitrogen 7 mg/dL (7-17); Calcium 8.6 mg/dL (8.4-10.2); Carbon Dioxide 22 mmol/L (22-30); Glucose 99 mg/dL (65-100); Potassium 3.8 mmol/L (3.6-5.0); Sodium 140 mmol/L (137-145); Total Protein 7.6 g/dL (6.3-8.2)
[2017-03-25] MEDS ORDERED: DILANTIN 1,000 MG in NACL 0.9% 250ML 250 ML IV ONE (14:44)
[2017-03-25] MEDS ORDERED: KEPPRA 500 MG in D5W 100 ML IV ONE ×2 (14:53→16:00)
--- NOTE | 2017-03-25 16:06 | Emergency Department Report ---
HPI - General Chief Complaint: Seizure Time Seen by Provider: 03/25/17 14:44 - HPI HPI: This is a 27-year-old -Thai female with a long-standing history of seizures. States she has tried multiple medication in the past with limited success and the seizure activities. Patient is now on Keppra 500 mg twice a day. She says she's been compliant with her medication but has at least 2 seizures a month. This morning while at home she had a tonic-clonic seizure, consistent with her previous seizures. Patient stated the seizure lasted about 1 minute and she came to it by herself. Patient did not remember if she took her Keppra yesterday. Patient denies any recent illness, cough, congestion, burning on urination, shortness of breath or chest pain. In the outpatient is alert, oriented, does not appear to be postictal. Patient states during this last seizure she did not have any loss of bowel or urine, did not bit her tongue , did not suffer any Other injuries. Patient states overall her primary care has been attempting to manage his seizures she has not seen a neurologist yet. ED Past Medical Hx - Past Medical History Hx Hypertension: No Hx CVA: No Hx Heart Attack/AMI: No Hx Congestive Heart Failure: No Hx Diabetes: No Hx Deep Vein Thrombosis: No Hx Pulmonary Embolism: No Hx GERD: No Hx Liver Disease: No Hx Renal Disease: No Hx Sickle Cell Disease: No Hx Arthritis: No Hx Headaches / Migraines: No Hx Seizures: Yes Hx Kidney Stones: No Hx Psychiatric Treatment: No Hx Asthma: No Hx COPD: No Hx Tuberculosis: No Hx Dementia: No Hx HIV: No - Surgical History Past Surgical History?: Yes Additional Surgical History: X 3. tubal ligation - Social History Smoking Status: Never Smoker Substance Use Type: None - Medications Home Medications: Home Medications Medication Instructions Recorded Confirmed Last Taken Type levETIRAcetam [Keppra TAB] 750 mg PO BID #60 tablet 03/08/17 03/25/17 03/25/17 Rx ED Review of Systems ROS: Stated complaint: SEIZURES Other details as noted in HPI Musculoskeletal: as per HPI Neurological: weakness, other (seizures) Physical Exam - Physical Exam Vital Signs: Vital Signs 03/25/17 03/25/17 13:33 15:21 Temperature 98.7 F Pulse Rate 94 H 105 H Respiratory 18 18 Rate Blood Pressure 111/61 Blood Pressure 105/68 [Left] O2 Sat by Pulse 95 96 Oximetry Physical Exam: Physical Exam: - General Limitations: No Limitations General appearance: alert, in no apparent distress - Head Head exam: Present: atraumatic, normocephalic - Eye Eye exam: Present: normal appearance - ENT ENT exam: Present: mucous membranes moist - Neck Neck exam: Present: normal inspection - Respiratory Respiratory exam: Present: normal lung sounds bilaterally. Absent: respiratory distress - Cardiovascular Cardiovascular Exam: Present: normal rhythm. Absent: systolic murmur, diastolic murmur, rubs, gallop - GI/Abdominal GI/Abdominal exam: Present: soft, normal bowel sounds - Extremities Exam Extremities exam: Present: normal inspection - Back Exam Back exam: Present: normal inspection - Neurological Exam Neurological exam: Present: alert, oriented X3, - Skin Skin exam: Present: warm, dry, intact, normal color. Absent: rash ED Course Vital Signs 03/25/17 03/25/17 13:33 15:21 Temperature 98.7 F Pulse Rate 94 H 105 H Respiratory 18 18 Rate Blood Pressure 111/61 Blood Pressure 105/68 [Left] O2 Sat by Pulse 95 96 Oximetry - Reevaluation(s) Reevaluation #1: 03/25/17 16:05 Patient observed in ED for about 6 hours, no new seizure activities. Receive a dose of Keppra tolerated it without issues, will d/c home with f/u with neurology. ED Medical Decision Making - Lab Data Result diagrams: 03/25/17 13:44 03/25/17 13:44 Critical care attestation.: If time is entered above; I have spent that time in minutes in the direct care of this critically ill patient, excluding procedure time. ED Disposition Clinical Impression: Seizure Disposition: DC-01 TO HOME OR SELFCARE Is pt being admited?: No Does the pt Need Aspirin: No Condition: Stable Referrals: PRIMARY CARE, [Primary Care Provider] - 3-5 Days ROBERT JORDAN MD [Referring] - 3-5 Days Forms: Work/School Release Form(ED)
[2017-03-25 16:43] VITALS: BP 96/64
== END 2017-03-25 16:43 | disposition home or self-care (01) ==
LOC: ED 13:19
DX: R56.9 Unspecified convulsions (principal)
CPT/HCPCS: 36415; 80053; 80185; 85025; 96365; 99284; G0480; J1953; 80320

== ENCOUNTER 2017-04-23 19:39 | Inpatient (IN) | payer OTHER ==
[2017-04-23 21:12] LABS: Basophils % (Auto) 0.6 % (0.0-1.8); Eosinophils % (Auto) 0.2 % (0.0-4.3); Hemoglobin 11.7 gm/dl (10.1-14.3); Mean Corpuscular HGB Conc 32 % (30-34); Mean Corpuscular Volume 78 fl (79-97); Platelet Count 326 K/mm3 (140-440); Red Blood Count 4.75 M/mm3 (3.65-5.03); Red Cell Distribution Width 17.6 % (13.2-15.2); White Blood Count 7.5 K/mm3 (4.5-11.0)
[2017-04-23 21:13] LABS: Mean Corpuscular Hemoglobin 25 pg (28-32)
[2017-04-23 21:37] LABS: Anion Gap 21 mmol/L; Blood Urea Nitrogen 5 mg/dL (7-17); Calcium 9.9 mg/dL (8.4-10.2); Carbon Dioxide 21 mmol/L (22-30); Chloride 104.3 mmol/L (98-107); Glucose 104 mg/dL (65-100); Potassium 3.9 mmol/L (3.6-5.0); Sodium 142 mmol/L (137-145)
--- NOTE | 2017-04-23 21:58 | Cat Scan Report ---
FINAL REPORT PROCEDURE: CT HEAD/BRAIN WO CON TECHNIQUE: Computerized tomography of the head was performed without contrast material. HISTORY: Seizure COMPARISON: March 07, 2017 FINDINGS: Skull and scalp: Normal. Paranasal sinuses: Normal. Ventricles and subarachnoid spaces: Normal. Cerebrum: No evidence of hemorrhage, acute infarction or mass . Cerebellum and brainstem: No evidence of hemorrhage, acute infarction or mass. Vasculature: Normal. Comments: None. IMPRESSION: Normal Examination
[2017-04-23] MEDS ORDERED: NACL 0.9% 1000 ML 1,000 ML ONE (22:05)
[2017-04-23] MEDS ORDERED: KEPPRA PO ONE (22:23)
--- NOTE | 2017-04-23 23:41 | Emergency Department Report ---
HPI - General Chief Complaint: Seizure Time Seen by Provider: 04/23/17 22:17 - HPI HPI: This is a 27 year-old female presents to the emergency department by EMS from home with complaint of 2 seizures today. The patient says she has been out of seizure meds for the past day which includes her Keppra 750 mg by mouth twice daily. During one of the seizures she hit her head on the floor. She complained of a mild headache but denies any vision change, chest pain, fever, nausea, vomiting. She does not currently have a primary care physician and she says that she does not have insurance. No recent travel or sick contacts at home. She has a surgical history of C- section 3 and tubal ligation. She did not take anything and was not given anything for her symptoms prior to presentation. ED Past Medical Hx - Past Medical History Hx Hypertension: No Hx CVA: No Hx Heart Attack/AMI: No Hx Congestive Heart Failure: No Hx Diabetes: No Hx Deep Vein Thrombosis: No Hx Pulmonary Embolism: No Hx GERD: No Hx Liver Disease: No Hx Renal Disease: No Hx Sickle Cell Disease: No Hx Arthritis: No Hx Headaches / Migraines: No Hx Seizures: Yes Hx Kidney Stones: No Hx Psychiatric Treatment: No Hx Asthma: No Hx COPD: No Hx Tuberculosis: No Hx Dementia: No Hx HIV: No - Surgical History Additional Surgical History: X 3. tubal ligation - Social History Smoking Status: Never Smoker Substance Use Type: None - Medications Home Medications: Home Medications Medication Instructions Recorded Confirmed Last Taken Type levETIRAcetam [Keppra TAB] 750 mg PO BID #60 tablet 04/24/17 Unknown Rx ED Review of Systems ROS: Stated complaint: SEIZURE Other details as noted in HPI Comment: All other systems reviewed and negative Constitutional: denies: chills, fever Eyes: denies: eye pain, eye discharge, vision change ENT: denies: ear pain, throat pain Respiratory: denies: cough, shortness of breath, wheezing Cardiovascular: denies: chest pain, palpitations Gastrointestinal: denies: abdominal pain, nausea, diarrhea Genitourinary: denies: urgency, dysuria, discharge Musculoskeletal: denies: back pain, joint swelling, arthralgia Skin: denies: rash, lesions Neurological: headache, other (seizure) Physical Exam - Physical Exam Vital Signs: Vital Signs 04/23/17 04/23/17 20:19 20:40 Temperature 98.8 F 98 F Pulse Rate 75 78 Respiratory 18 18 Rate Blood Pressure 108/71 108/71 O2 Sat by Pulse 100 100 Oximetry Physical Exam: GENERAL: The patient is well-developed well-nourished. HENT: Normocephalic. Atraumatic. Patient has moist mucous membranes. EYES: Extraocular motions are intact. Pupils equal reactive to light bilaterally. NECK: Supple. Trachea is in the midline. CHEST/LUNGS: Clear to auscultation. There is no respiratory distress noted. HEART/CARDIOVASCULAR: Regular. There is no tachycardia. There is no gallop rub or murmur. ABDOMEN: Abdomen is soft, nontender. Patient has normal bowel sounds. There is no abdominal distention. SKIN: Skin is warm and dry. NEURO: The patient is very fatigued but is arousable. She appears to be postictal. Withdraws to painful stimuli. Follow some commands. MUSCULOSKELETAL: There is no tenderness or deformity. There is no limitation range of motion. There is no evidence of acute injury. ED Course Vital Signs 04/23/17 04/23/17 20:19 20:40 Temperature 98.8 F 98 F Pulse Rate 75 78 Respiratory 18 18 Rate Blood Pressure 108/71 108/71 O2 Sat by Pulse 100 100 Oximetry ED Medical Decision Making - Lab Data Result diagrams: 04/23/17 20:58 04/23/17 20:58 - EKG Data -: EKG Interpreted by Fl EKG shows normal: sinus rhythm, axis, intervals, QRS complexes, ST-T waves Rate: normal - EKG Data When compared to previous EKG there are: previous EKG unavailable Interpretation: normal EKG - Radiology Data Radiology results: report reviewed PROCEDURE: CT HEAD/BRAIN WO CON TECHNIQUE: Computerized tomography of the head was performed without contrast material. HISTORY: Seizure COMPARISON: March 07, 2017 FINDINGS: Skull and scalp: Normal. Paranasal sinuses: Normal. Ventricles and subarachnoid spaces: Normal. Cerebrum: No evidence of hemorrhage, acute infarction or mass . Cerebellum and brainstem: No evidence of hemorrhage, acute infarction or mass. Vasculature: Normal. Comments: None. IMPRESSION: Normal Examination - Medical Decision Making 27-year-old female presents after multiple seizures after she went about 24 hours without her seizure medication. Patient has been very fatigued and postictal for the majority of her ED stay. CT of the head did not show any bleed, shift, mass or any acute process. Labs are unremarkable and do not show any etiology of her symptoms. She was covered with a loading dose of Keppra. She has been in the emergency department for 5.5 hours and continues to appear postictal. She is slightly improved to the point where she is able to answer some questions but does not appear awake and alert enough at this point for ambulation or for safe discharge home. This reason she will be presented to the admitting hospitalist for admission. - Differential Diagnosis seizure, TIA, CVA, dysrhythmia Critical Care Time: No Critical care attestation.: If time is entered above; I have spent that time in minutes in the direct care of this critically ill patient, excluding procedure time. ED Disposition Clinical Impression: Seizure disorder, Seizure secondary to subtherapeutic anticonvulsant medication , Postictal state, Recurrent seizures Disposition: OP ADMIT IP TO THIS HOSP Is pt being admited?: Yes Condition: Stable Instructions: Epilepsy (ED) Additional Instructions: Please follow up with a primary care physician in the next few days. I have also given you a referral for a local neurologist, Dr. Johnson, in case she would like to follow up regarding your seizure disorder. Take the seizure medications , Keppra, as prescribed. Return to the emergency Department with any worsening of your symptoms or any acute distress. Prescriptions: levETIRAcetam [Keppra TAB] 750 mg PO BID #60 tablet Referrals: IMAN CRAIG MD [Primary Care Provider] - 3-5 Days GERMAINE JOHNSON MD [Staff Physician] - 3-5 Days MARKIE MONTESINOS JR, MD [Staff Physician] - 3-5 Days [facility] [Outside] - 3-5 Days Time of Disposition: 00:37
[2017-04-24] MEDS ORDERED: NACL 0.9% 1000 ML 1,000 ML IV ONE (00:56)
[2017-04-24] MEDS ORDERED: DULCOLAX PR PRN (01:46)
[2017-04-24] MEDS ORDERED: TYLENOL PO PRN (01:46)
[2017-04-24] MEDS ORDERED: MORPHINE IV PRN (01:46)
[2017-04-24] MEDS ORDERED: MILK OF MAGNESIA PO PRN (01:46)
[2017-04-24] MEDS ORDERED: ZOFRAN IV PRN (01:46)
--- NOTE | 2017-04-24 01:46 | History and Physical Report ---
History of Present Illness Date of examination: 04/24/17 Date of admission: 04/24/17 Chief complaint: seizures History of present illness: Patient is 27-year-old with history of seizure disorder presented with seizures. She states she ran out of her medication for just one day. For seizures, she is on Keppra 750mg po twice daily. She was given Keppra 1000mg IV and will be admitted for further management. Se denies any chest pain or shortness of breath. Past History Past Medical History: seizures Past Surgical History: Social history: full code. denies: smoking Medications and Allergies Allergies Allergy/AdvReac Type Severity Reaction Status Date / Time Penicillins Allergy Unknown Verified 02/09/17 08:14 phenobarbital Allergy Unknown Verified 01/26/17 18:10 Home Medications Medication Instructions Recorded Confirmed Last Taken Type levETIRAcetam [Keppra TAB] 750 mg PO BID #60 tablet 04/24/17 Unknown Rx Active Meds: Active Medications Sodium Chloride (Nacl 0.9% 1000 Ml) 1,000 mls @ 999 mls/hr IV BOLUS ONE Stop: 04/24/17 01:56 Review of Systems All systems: negative (No chest pain, no SOB, no abd pain, no cough, All or other systems reviewed and are negative) Exam - Physical Exam Narrative exam: Gen Appearance: Not in acute distress, HEENT: normocephalic, atraumatic Neck: supple, no JVD Lungs: Clear to auscultation, bilaterally, no rales, no wheeze Heart: S1 and S2 regular, no murmurs,no rubs or gallop, Abdomen: Soft , non tender, non distended, normal bowel sounds Extremity: No edema, no clubbing or cyanosis, Neuro : Awake, drowsy,post-ictal, moves all extremities - Constitutional Vitals: Temp Pulse Resp BP Pulse Ox 99.2 F 77 16 107/38 99 04/24/17 00:01 04/24/17 00:01 04/24/17 00:01 04/24/17 00:01 04/24/17 00:01 Results - Labs CBC & Chem 7: 04/23/17 20:58 04/23/17 20:58 Labs: Abnormal lab results 04/23/17 04/23/17 04/23/17 Range/Units 20:58 20:58 22:56 MCV 78 L (79-97) fl MCH 25 L (28-32) pg RDW 17.6 H (13.2-15.2) % Carbon Dioxide 21 L (22-30) mmol/L BUN 5 L (7-17) mg/dL Creatinine 0.5 L (0.7-1.2) mg/dL Glucose 104 H (65-100) mg/dL Total Creatine Kinase 138 H (30-135) units/L Assessment and Plan Breakthrough seizures. Admit to medical surgical floor. Patient ran out of Keppra for one day and had seizures today. Was given Keppra IV in Emergency department. She is currently drowsy, postictal. Implement seizure precautions, neurochecks. DVT prophylaxis with heparin subcut. FULL CODE STATUS
[2017-04-24] MEDS ORDERED: ATIVAN IV PRN (01:49)
--- NOTE | 2017-04-24 08:11 | Progress Note ---
<JAILENE BORDEN - Last Filed: 04/24/17 15:04> Assessment and Plan Assessment and plan: Metabolic encephalopathy Secondary to seizure, postictal state. CT of the head did not show any bleed, shift, mass or any acute process. seizure precautions Status Epilepticus Patient ran out of Omisera for one day and had seizures yesterday. Increased the does of Omisera Frequent neuro checks. Ativan when necessary Implement seizure precautions Supportive care Medical Noncompliance Patient noncompliance with her medication. Counseling will be given when patient become more alert and oriented. DVT prophylaxis Lovenox Plan discussed with patient and her nurse. History Interval history: Patient currently drowsy and easily arousable, postictal state. Labs and nurses notes reviewed. Hospitalist Physical - Constitutional Vitals: Temp Pulse Resp BP Pulse Ox 98.1 F 67 15 92/64 100 04/24/17 07:27 04/24/17 07:27 04/24/17 07:27 04/24/17 07:27 04/24/17 07:27 General appearance: Present: other (Patient currently drowsy and easily arousable, postictal state) - EENT Eyes: Present: PERRL ENT: hearing intact - Neck Neck: Present: supple - Respiratory Respiratory effort: normal Respiratory: bilateral: CTA - Cardiovascular Rhythm: regular Heart Sounds: Present: S1 & S2 - Extremities Extremities: no ischemia Peripheral Pulses: within normal limits - Abdominal General gastrointestinal: soft, non-tender - Integumentary Integumentary: Present: clear, warm, dry - Psychiatric Psychiatric: other (patient drowsy easily arousable.) - Neurologic Neurologic: moves all extremities - Allied Health Allied health notes reviewed: nursing Results - Labs CBC & Chem 7: 04/23/17 20:58 04/23/17 20:58 Labs: Laboratory Last Values WBC 7.5 K/mm3 (4.5-11.0) 04/23/17 20:58 RBC 4.75 M/mm3 (3.65-5.03) 04/23/17 20:58 Hgb 11.7 gm/dl (10.1-14.3) 04/23/17 20:58 Hct 37.0 % (30.3-42.9) 04/23/17 20:58 MCV 78 fl (79-97) L 04/23/17 20:58 MCH 25 pg (28-32) L 04/23/17 20:58 MCHC 32 % (30-34) 04/23/17 20:58 RDW 17.6 % (13.2-15.2) H 04/23/17 20:58 Plt Count 326 K/mm3 (140-440) 04/23/17 20:58 Lymph % (Auto) 26.0 % (13.4-35.0) 04/23/17 20:58 [place] % (Auto) 7.0 % (0.0-7.3) 04/23/17 20:58 Eos % (Auto) 0.2 % (0.0-4.3) 04/23/17 20:58 Baso % (Auto) 0.6 % (0.0-1.8) 04/23/17 20:58 Lymph # 2.0 K/mm3 (1.2-5.4) 04/23/17 20:58 [place] # 0.5 K/mm3 (0.0-0.8) 04/23/17 20:58 Eos # 0.0 K/mm3 (0.0-0.4) 04/23/17 20:58 Baso # 0.0 K/mm3 (0.0-0.1) 04/23/17 20:58 Seg Neutrophils % 66.2 % (40.0-70.0) 04/23/17 20:58 Seg Neutrophils # 5.0 K/mm3 (1.8-7.7) 04/23/17 20:58 Sodium 142 mmol/L (137-145) 04/23/17 20:58 Potassium 3.9 mmol/L (3.6-5.0) 04/23/17 20:58 Chloride 104.3 mmol/L (98-107) 04/23/17 20:58 Carbon Dioxide 21 mmol/L (22-30) L 04/23/17 20:58 Anion Gap 21 mmol/L 04/23/17 20:58 BUN 5 mg/dL (7-17) L 04/23/17 20:58 Creatinine 0.5 mg/dL (0.7-1.2) L 04/23/17 20:58 Estimated GFR > 60 ml/min 04/23/17 20:58 BUN/Creatinine Ratio 10.00 % 04/23/17 20:58 Glucose 104 mg/dL (65-100) H 04/23/17 20:58 Calcium 9.9 mg/dL (8.4-10.2) 04/23/17 20:58 Total Creatine Kinase 138 units/L (30-135) H 04/23/17 22:56 TSH 0.871 mlU/mL (0.270-4.200) 04/23/17 22:56 - Imaging and Cardiology CT Scan - head: image reviewed (unremarkable) <NAT ESCOBAR - Last Filed: 04/24/17 15:09> Hospitalist Physical - Constitutional Vitals: Temp Pulse Resp BP Pulse Ox 98.2 F 71 16 88/56 97 04/24/17 12:23 04/24/17 12:23 04/24/17 12:23 04/24/17 12:23 04/24/17 12:23 Results - Labs CBC & Chem 7: 04/23/17 20:58 04/23/17 20:58 Labs: Laboratory Last Values WBC 7.5 K/mm3 (4.5-11.0) 04/23/17 20:58 RBC 4.75 M/mm3 (3.65-5.03) 04/23/17 20:58 Hgb 11.7 gm/dl (10.1-14.3) 04/23/17 20:58 Hct 37.0 % (30.3-42.9) 04/23/17 20:58 MCV 78 fl (79-97) L 04/23/17 20:58 MCH 25 pg (28-32) L 04/23/17 20:58 MCHC 32 % (30-34) 04/23/17 20:58 RDW 17.6 % (13.2-15.2) H 04/23/17 20:58 Plt Count 326 K/mm3 (140-440) 04/23/17 20:58 Lymph % (Auto) 26.0 % (13.4-35.0) 04/23/17 20:58 [place] % (Auto) 7.0 % (0.0-7.3) 04/23/17 20:58 Eos % (Auto) 0.2 % (0.0-4.3) 04/23/17 20:58 Baso % (Auto) 0.6 % (0.0-1.8) 04/23/17 20:58 Lymph # 2.0 K/mm3 (1.2-5.4) 04/23/17 20:58 [place] # 0.5 K/mm3 (0.0-0.8) 04/23/17 20:58 Eos # 0.0 K/mm3 (0.0-0.4) 04/23/17 20:58 Baso # 0.0 K/mm3 (0.0-0.1) 04/23/17 20:58 Seg Neutrophils % 66.2 % (40.0-70.0) 04/23/17 20:58 Seg Neutrophils # 5.0 K/mm3 (1.8-7.7) 04/23/17 20:58 Sodium 142 mmol/L (137-145) 04/23/17 20:58 Potassium 3.9 mmol/L (3.6-5.0) 04/23/17 20:58 Chloride 104.3 mmol/L (98-107) 04/23/17 20:58 Carbon Dioxide 21 mmol/L (22-30) L 04/23/17 20:58 Anion Gap 21 mmol/L 04/23/17 20:58 BUN 5 mg/dL (7-17) L 04/23/17 20:58 Creatinine 0.5 mg/dL (0.7-1.2) L 04/23/17 20:58 Estimated GFR > 60 ml/min 04/23/17 20:58 BUN/Creatinine Ratio 10.00 % 04/23/17 20:58 Glucose 104 mg/dL (65-100) H 04/23/17 20:58 Calcium 9.9 mg/dL (8.4-10.2) 04/23/17 20:58 Total Creatine Kinase 138 units/L (30-135) H 04/23/17 22:56 TSH 0.871 mlU/mL (0.270-4.200) 04/23/17 22:56
[2017-04-24] MEDS: KEPPRA PO SCH ×2 (09:49→21:57)
[2017-04-24] MEDS: D5NS 1,000 ML IV SCH (13:27)
[2017-04-24] MEDS: HEPARIN SUB-Q SCH ×2 (13:28→21:57)
[2017-04-24] MEDS ORDERED: Fluarix Quad 2017-2018(36 MOS+) IM ONE (16:00)
[2017-04-24 17:03] LABS: Urine Drugs of Abuse Note Disclamer
[2017-04-24 17:29] LABS: Bilirubin,Urine NEG (Negative); Blood,Urine LG (Negative); Ketones,Urine NEG (Negative); Leukocyte Esterase,Urine TR (Negative); Mucus,Urine 1+ /HPF; Nitrite,Urine NEG (Negative); Urobilinogen,Urine < 2.0 mg/dL (<2.0)
[2017-04-24 17:33] LABS: RBC,Urine > 182.0 /HPF (0.0-6.0)
[2017-04-25] MEDS: D5NS 1,000 ML IV SCH ×2 (00:14→22:15)
[2017-04-25 05:22] LABS: Basophils % (Auto) 0.6 % (0.0-1.8); Eosinophils % (Auto) 1.9 % (0.0-4.3); Hematocrit 32.6 % (30.3-42.9); Hemoglobin 10.3 gm/dl (10.1-14.3); Mean Corpuscular HGB Conc 32 % (30-34); Mean Corpuscular Hemoglobin 25 pg (28-32); Mean Corpuscular Volume 78 fl (79-97); Platelet Count 250 K/mm3 (140-440); Red Cell Distribution Width 17.5 % (13.2-15.2); White Blood Count 6.2 K/mm3 (4.5-11.0)
[2017-04-25 05:36] LABS: Anion Gap 15 mmol/L; BUN/Creatinine Ratio 12; Blood Urea Nitrogen 6 mg/dL (7-17); Carbon Dioxide 22 mmol/L (22-30); Chloride 108.3 mmol/L (98-107); Glucose 93 mg/dL (65-100); Potassium 3.3 mmol/L (3.6-5.0); Sodium 142 mmol/L (137-145)
[2017-04-25] MEDS: HEPARIN SUB-Q SCH ×3 (07:00→21:15)
--- NOTE | 2017-04-25 10:26 | Discharge Summary ---
Providers - Providers Date of Admission: 04/24/17 01:46 Attending physician: RK FLORES MD Primary care physician: LUMBER SORTER MACHINE Hospitalization Reason for admission: recurrent seizures, medication noncompliance Condition: Stable Pertinent studies: CT head no acute intracranial findings identified Hospital course: 27-year-old -[place] female with past medical history significant for seizures presented to the emergency department complaining of recurrent seizures that she ran out of her Keppra for the last few days. Patient stated that she didn't have a primary care physician. The patient was given IV Keppra and admitted to the floor for further management. Patient was post ictal and confused at admission. Patient didn't have any episode of seizure after admission. Patient was alert and oriented this morning. She was given 1 month supply of Keppra 2000 mg by mouth 2 times a day. I also advised her to have a primary care physician or go to [facility] and get refills. Patient was hemodynamically stable at the time of discharge. Disposition: DC- TO HOME OR SELFCARE - Discharge Diagnoses (1) Postictal state Status: Acute (2) Recurrent seizures Status: Acute (3) Seizure disorder Status: Acute (4) Hypokalemia Status: Acute Core Measure Documentation - Palliative Care Palliative Care/ Comfort Measures: Not Applicable - Core Measures Any of the following diagnoses?: none Exam - Physical Exam Narrative exam: Not in cardiopulmonary distress. The patient appeared well nourished and normally developed. Vital signs as documented. Head exam is unremarkable. No scleral icterus . Neck is without jugular venous distension, thyromegaly, or carotid bruits. Lungs are clear to auscultation. Cardiac exam reveals regular rate and Rhythm. First and second heart sounds normal. No murmurs, rubs or gallops. Abdominal exam reveals normal bowel sounds, no masses, no organomegaly and no aortic enlargement. Extremities are nonedematous and both femoral and pedal pulses are normal. DIRECTOR DIGITAL: Sleepy. - Constitutional Vitals: Temp Pulse Resp BP Pulse Ox 95.5 F L 62 16 88/56 99 04/25/17 08:02 04/25/17 08:02 04/25/17 08:02 04/25/17 08:02 04/25/17 08:02 Plan Activity: no restrictions Weight Bearing Status: Full Weight Bearing Diet: regular Follow up with: [facility] [Outside] - 3-5 Days MARKIE MONTESINOS JR, MD [Staff Physician] - 3-5 Days GERMAINE JOHNSON MD [Staff Physician] - 3-5 Days PRIMARY CAREMD [Primary Care Provider] - 3-5 Days Prescriptions: levETIRAcetam [Keppra TAB] 1,000 mg PO BID #60 tab
[2017-04-25] MEDS ORDERED: K-DUR PO ONE (11:00)
[2017-04-25] MEDS: KEPPRA PO SCH ×2 (11:46→21:02)
[2017-04-25 16:42] VITALS: BP 99/58
== END 2017-04-25 21:40 | disposition home or self-care (01) | DRG 101 ==
LOC: ED 19:39 → 3A 04-24 01:46
PROVIDERS: ADMIT Internal Medicine; ATTEND Internal Medicine
PROC: 3E0234Z Introduction of Serum, Toxoid and Vaccine into Muscle, Percutaneous Approach (ICD-10-PCS; principal; 2017-04-24)
DX: G40.801 Other epilepsy, not intractable, with status epilepticus (principal); E87.6 Hypokalemia; Z98.51 Tubal ligation status; Z79.899 Other long term (current) drug therapy; Z88.8 Allergy status to other drugs, medicaments and biological substances; Z88.0 Allergy status to penicillin; Z91.19 Patient's noncompliance with other medical treatment and regimen; Z23 Encounter for immunization
CPT/HCPCS: 36415; 70450; 80048; 80307; 81001; 82550; 84443; 85025; 90686; 93005; 93010; 96360; J1644; J7030; J7042